=== PATIENT | male | born 1990 | race Hispanic/Latino ===

== ENCOUNTER 2024-02-15 11:28 | Emergency (ER) | payer OTHER, SELFPAY ==
[2024-02-15 11:34] VITALS: BP 176/89
[2024-02-15] MEDS: PROTONIX IV 40 MG IV (12:34)
[2024-02-15] MEDS: NSS 500 IV (12:34)
[2024-02-15] MEDS: DILAUDID 1 MG IV (12:34)
[2024-02-15] MEDS: ZOFRAN 4 MG IV ×3 (12:34→14:30)
[2024-02-15 12:40] VITALS: BMI 27.3
--- NOTE | 2024-02-15 13:11 | ED.GENMED ---
History of Present Illness
General
Chief Complaint: Abdominal Pain
Source: patient
Exam Limitations: none
Time Seen by Provider: 02/15/24 11:54
Nursing documentation reviewed up to this point in time: agreed with
Travel History
Have you had any contact with someone who has COVID-19?: No
Do you have any symptoms of coronavirus? Fever > 100 degrees, chills, cough, shortness of breath, sore throat, loss of taste or smell, muscle aches, or headache?: No
History of Present Illness
History of Present Illness:
Patient evaluated at [facility] in [place] yesterday secondary to abdominal pain with vomiting, and diagnosed with bowel obstruction via CT scan, presents to ED secondary to persistent pain with intermittent vomiting. Patient was
recommended to be admitted to the hospital, but declined. Denies fever or chills. Denies trauma. Patient medical history is significant for multiple abdominal surgeries along with bowel obstruction. Denies fever or chills. Denies diarrhea.
Denies trauma. Patient recently admitted at [facility] 1 month ago for similar complaint, and required surgery, during which time, there was minor complication with perforation which needed to be repaired surgically.
Past History
Past History
ED Past Medical History: Other (small bowel obstruction, perforated bowel, MRSA bacteremia, infectious endocarditis, multiple abdominal surgeries, intra-abdominal fistula)
ED Past Surgical History: Appendectomy, Cholecystectomy and Other (abdominal abscess drained, history of Meckel's Diverticulum Surgery, partial bowel resection)
Social History
Tobacco: Smoker
Alcohol: None
Drug: None
Personal: Single
Living: alone
Employment: Employed
Family History
Family History: Negative Diabetes, Hypertension or CAD
Review of Systems
Review of Systems
Allergies reviewed?: Yes
All Other Systems: ROS reviewed and negative except as documented in HPI and ROS
Constitutional: Reports no symptoms; Denies fever
EENT: Reports no symptoms
Respiratory: Reports no symptoms
Cardiac: Reports no symptoms
ABD/GI: Reports abdominal pain, nausea and vomiting
Musculoskeletal: Reports no symptoms
Skin: Reports no symptoms
Neurological: Reports no symptoms
Phy Exam
Physical Exam
Physical Exam:
Physical Exam
General: moderate painful distress, not acutely ill. afebrile
Head: nc/at. eomi
Neck: supple. no meningeal signs.
Heart: tachycardic, no murmur. equal radial pulses.
Lungs: no acute respiratory distress. clear bilaterally
Abdomen: normal bowel sounds. mild diffuse tenderness to palpation. multiple well healed/healing surgical scar with an approx 1cm wound dehiscence without purulent drainage.
Neuro: alert and oriented. no focal neurological deficits
Skin: no rash
Psychiatric: well kept. interactive and cooperative
Extremities: no edema. no calf tenderness.
Course
Orders/Labs/Results
Orders:
Orders
02/15/24 11:56
CR Obstruct Series W/pa Chest Urgent
Comment:
Reason For Exam: abd pain w vomiting. hx SBO
02/15/24 12:26
HYDROmorphone [Dilaudid] 1 mg IV NOW STA
02/15/24 12:27
0.9% Sodium Chloride 500 ml [Nss] 500 ml IV BOLUS
Ondansetron Injectable [Zofran] 4 mg IV NOW STA
Pantoprazole [Protonix IV] 40 mg IV NOW STA
02/15/24 13:12
HYDROmorphone [Dilaudid] 0.5 mg IV NOW STA
02/15/24 13:13
Ondansetron Injectable [Zofran] 4 mg .ROUTE .[facility]
Ondansetron Injectable [Zofran] 4 mg IV NOW STA
02/15/24 14:27
HYDROmorphone [Dilaudid] 0.5 mg IV NOW STA
Ondansetron Injectable [Zofran] 4 mg IV NOW STA
02/15/24 14:28
HYDROmorphone [Dilaudid] 0.5 mg .ROUTE .[facility]
Ondansetron Injectable [Zofran] 4 mg .ROUTE .[facility]
02/15/24 11:56
02/15/24 11:56
Vital Signs
Initial and Last Documented VS:
Initial Vital Signs
Temp Pulse Resp BP Pulse Ox
99.1 F 127 20 176/89 98
02/15/24 11:34 02/15/24 11:34 02/15/24 11:34 02/15/24 11:34 02/15/24 11:34
Last Documented Vital Signs
Temp Pulse Resp BP Pulse Ox
99.1 F 81 18 124/78 100
02/15/24 11:34 02/15/24 14:34 02/15/24 14:34 02/15/24 14:34 02/15/24 14:34
MDM/Problems Addressed
MDM/Problems Addressed:
History, exam, and previous CT abdomen pelvis along with today's x-ray consistent with likely recurrent bowel obstruction. Discussed treatment options with the patient, including potential inpatient treatment. At this time, patient feels improved
with medication and would like to be discharged home. Will return with worsening symptoms. Patient does not wish to go home with any pain medication at this time.
*Critical Care Note
Total Time (30-74mins, 75-104mins- exclusive of procedures): Not Applicable
ED Attending Note
-
Portions of this chart may have been created with voice recognition software.� Occasional wrong word or��sound alike� substitutions may have occurred due to the inherent limitations of voice recognition software.
Discharge Plan
Departure
Patient Disposition: Home (Routine Discharge)
Date of Disposition: 02/15/24
Time of Disposition: 15:30
Patient with high blood pressure during this ER visit?: Yes
Condition: Good
Discharge Problem:
Bowel obstruction
Instructions: Small Bowel Obstruction (DC)
Prescriptions:
No Action
multivitamin with folic acid [Tab-A-Irving] 1 TABLET tablet
1 tab PO DAILY
insulin glargine [Lantus U-100 Insulin] 100 unit/mL Solution
25 unit SC HS
amoxicillin-pot clavulanate 875-125 mg tablet
1 tab PO BID 10 Days Qty: 20 0RF
Referrals:
Tiffanie Guerrero MD [Family Provider] -
Activity Restrictions/Additional Instructions:
As discussed, please follow-up with your primary care physician and/or general surgeon for further evaluation and treatment. Please return to ED immediately with worsening symptoms.
Interventions
Interventions:
*Risk Screen - Suicide Last Done: 02/15/24 12:40
*General Assessment Last Done: 02/15/24 12:40
*Neglect/Abuse Screening Last Done: 02/15/24 12:40
ED- Fall Risk Assessment Last Done: 02/15/24 15:42
*ED COVID-19 Vaccine History Last Done: 02/15/24 12:40
*Nursing Disposition Last Done: 02/15/24 15:42
JM-Qfhfoz-Embddjngfv Assessment Last Done: 02/15/24 12:02
Discharge Date and Time
Discharge Date/Time: 02/15/24 15:44
Print Language: KINYARWANDA
[2024-02-15] MEDS: DILAUDID 0.5 MG IV ×2 (13:16→14:30)
[2024-02-15 14:34] VITALS: BP 124/78
== END 2024-02-15 15:44 | disposition home or self-care (01) ==
LOC: EMR 11:28
PROVIDERS: EMERGENCY PHYSICIAN Emergency Medicine; FAMILY PHYSICIAN Family Medicine
DX: K56.609 Unspecified intestinal obstruction, unspecified as to partial versus complete obstruction (principal); F17.200 Nicotine dependence, unspecified, uncomplicated; Z86.14 Personal history of Methicillin resistant Staphylococcus aureus infection; Z90.49 Acquired absence of other specified parts of digestive tract
CPT/HCPCS: 99283; 96374; 96375; 96376; 96361; 74022

== ENCOUNTER 2024-03-06 10:20 | Emergency (ER) | payer OTHER, SELFPAY ==
[2024-03-06 10:35] VITALS: BP 116/83
[2024-03-06] MEDS: ZOFRAN 4 MG IV ×2 (11:29→13:18)
[2024-03-06] MEDS: BENADRYL 50 MG IV (11:29)
[2024-03-06] MEDS: DILAUDID 0.5 MG IV ×2 (11:29→16:50)
[2024-03-06] MEDS: NSS 1000 IV (11:30)
[2024-03-06 12:13] LABS: % Basophils 0.5 % (0-2); % Eosinophils 2.4 % (0-6); % Immature Granulocytes 0.2 % (0-0.5); % Lymphocytes 26.5 % (20.5-51.1); % Monocytes 6.1 % (1.7-9.3); % Neutrophils 64.3 % (42.2-75.2); Absolute Eosinophils 0.1 10^3/uL (0-0.7); Absolute Lymphocytes 1.5 10^3/uL (1.2-3.4); Absolute Monocytes 0.4 10^3/uL (0.1-0.6); Absolute Neutrophils 3.7 10^3/uL (1.4-6.5); Hematocrit 35.8 % (39.0-52.0); Hemoglobin 12.1 g/dL (13.0-18.0); Mean Corp Hgb Conc. 33.8 g/dL (33.0-37.0); Mean Corpuscular Hgb 27.1 pg (27.0-31.0); Mean Corpuscular Volume 80.1 fL (80.0-94.0); Mean Platelet Volume 9.6 fL (7.4-10.4); Nucleated Red Blood Cells % 0 % (-); Platelet Count 424 10^3/uL (130-400); Red Blood Cell Count 4.47 10^6/uL (4.70-6.10); Red Cell Dist. Width 13.2 % (11.5-14.5); White Blood Cell Count 5.8 10^3/uL (4.8-10.8)
[2024-03-06 12:25] LABS: Lactic Acid 2.5 mmol/L (0.7-2.0)
[2024-03-06 12:28] LABS: ALT (SGPT) 30 U/L (0-50); AST (SGOT) 33 U/L (17-59); Albumin 4.5 g/dl (3.5-5.0); Alkaline Phosphatase 98 U/L (38-126); Blood Urea Nitrogen 12 mg/dl (9-20); Calcium 9.9 mg/dl (8.4-10.2); Carbon Dioxide 20 mmol/L (22-30); Chloride 107 mmol/L (98-107); Glucose 111 mg/dl (70-99); Lipase 244 U/L (23-300); Potassium 4.2 mmol/L (3.5-5.1); Sodium 137 mmol/L (135-145); Total Bilirubin 0.4 mg/dl (0.2-1.3); Total Protein 7.4 g/dl (6.3-8.2); eGFR > 60.00
[2024-03-06 12:57] VITALS: BP 123/87
[2024-03-06] MEDS: SOLU-CORTEF 200 MG IV (13:18)
[2024-03-06] MEDS: DILAUDID 1 MG IV ×2 (13:18→14:52)
[2024-03-06] MEDS: BENADRYL 25 MG IV (14:13)
[2024-03-06 15:10] VITALS: BP 138/72
--- NOTE | 2024-03-06 16:18 | ED.GENMED ---
History of Present Illness
General
Chief Complaint: Bowel Problem
Source: patient
Exam Limitations: none
Time Seen by Provider: 03/06/24 11:12
Nursing documentation reviewed up to this point in time: agreed with
Travel History
Have you had any contact with someone who has COVID-19?: No
Do you have any symptoms of coronavirus? Fever > 100 degrees, chills, cough, shortness of breath, sore throat, loss of taste or smell, muscle aches, or headache?: No
History of Present Illness
History of Present Illness:
33-year-old male with past medical history of extensive bowel surgeries bowel obstructions presenting to the emergency department today with concerns of ongoing abdominal pain nausea and vomiting. Was recently at [facility] where they were treating
him for bowel obstruction with an NG tube he had to leave and go to court date. He had ongoing symptoms at court and came to the ER here for assessment. He had ongoing abdominal pain and also ongoing intermittent vomiting specifically worse when
try to consume by mouth. Denies specific chest pain fevers. Denies significant bowel movements over the past few days.
Past History
Past History
ED Past Medical History: Other (small bowel obstruction, perforated bowel, MRSA bacteremia, infectious endocarditis, multiple abdominal surgeries, intra-abdominal fistula)
ED Past Surgical History: Appendectomy, Cholecystectomy and Other (abdominal abscess drained, history of Meckel's Diverticulum Surgery, partial bowel resection)
Social History
Tobacco: Smoker
Alcohol: None
Drug: None
Personal: Single
Living: alone
Employment: Employed
Family History
Family History: Negative Diabetes, Hypertension or CAD
Review of Systems
Review of Systems
Allergies reviewed?: Yes
All Other Systems: ROS reviewed and negative except as documented in HPI and ROS
Phy Exam
Physical Exam
Physical Exam:
GENERAL: Alert , in no apparent distress
EYE: pupils equal and reactive
NECK: Supple, no significant adenopathy.
ENT: o/p clr, mmm.
CARDIAC: Regular rate and rhythm .
LUNGS: Clear breath sounds bilaterally, no acute respiratory distress, no wheezes/rales/rhonchi
ABDOMEN: Diffuse tenderness to the abdomen midline incision without dehiscence, multiple scars throughout the abdomen
NEUROLOGICAL: Alert and oriented, no focal neuro deficits
SKIN: Warm and dry, skin intact.
MUSCULOSKELETAL: No edema, well perfused.
PSYCH: Normal and appropriate interaction.
Course
Orders/Labs/Results
Orders:
Orders
03/06/24 11:19
CT Abd/Pel (IV only)-DH only Urgent
Comment:
Reason For Exam: abd pain, hx od obstruction, cant tolerate oral
Urinalysis Reflex To Culture Urgent
Date Specimen was Collected: 03/06/24
Time Specimen was Collected: 11:22
0.9% Sodium Chloride 1000 ml [Nss] 1,000 ml IV BOLUS
Diphenhydramine [Benadryl] 50 mg IV NOW STA
HYDROmorphone [Dilaudid] 0.5 mg IV NOW STA
Ondansetron Injectable [Zofran] 4 mg IV NOW STA
03/06/24 11:28
Complete Blood Count/With Diff Urgent
Comprehensive Metabolic Panel Urgent
Lactic Acid Urgent
Lipase Urgent
03/06/24 12:26
Hydrocortisone Sod Succinate [Solu-Cortef] 200 mg IV NOW STA
03/06/24 13:14
HYDROmorphone [Dilaudid] 1 mg IV NOW STA
Ondansetron Injectable [Zofran] 4 mg IV NOW STA
03/06/24 14:12
Diphenhydramine [Benadryl] 50 mg .ROUTE .[facility]
03/06/24 14:13
Diphenhydramine [Benadryl] 25 mg IV NOW STA
03/06/24 14:49
HYDROmorphone [Dilaudid] 1 mg IV NOW STA
Abnormal Lab Results
03/06/24
11:28
RBC 4.47 L 10^6/uL
(4.70-6.10)
Hgb 12.1 L g/dL
(13.0-18.0)
Hct 35.8 L %
(39.0-52.0)
Plt Count 424 H 10^3/uL
(130-400)
Carbon Dioxide 20 L mmol/L
(22-30)
Glucose 111 H mg/dl
(70-99)
Lactic Acid 2.5 H mmol/L
(0.7-2.0)
03/06/24 11:28
03/06/24 11:28
Vital Signs
Initial and Last Documented VS:
Initial Vital Signs
Temp Pulse Resp BP Pulse Ox
98.9 F 117 18 116/83 100
03/06/24 10:35 03/06/24 10:35 03/06/24 10:35 03/06/24 10:35 03/06/24 10:35
Last Documented Vital Signs
Temp Pulse Resp BP Pulse Ox
98.9 F 107 18 138/72 99
03/06/24 10:35 03/06/24 15:10 03/06/24 15:10 03/06/24 15:10 03/06/24 15:10
MDM/Problems Addressed
MDM/Problems Addressed:
33-year-old male with past medical history of multiple abdominal surgeries in the past coming in for abdominal pain. Recently had surgery at [place] 2 months ago was very recently at [facility] where he was being treated by general surgery for
bowel obstruction open to 5 days ago ongoing symptoms today. On arrival here initially tachycardic mild elevation of his lactic acid to 2.5 was given a liter of fluid does feel better after receiving pain medication and nausea medication. Heart
rate improving to the high 90s and low 100s. CT scan performed did not show any processes but did show slow gut transit. He additionally when lying flat for the CT scan had a small superficial dehiscence of his wound which was discussed with
surgery that felt that this did not require any emergent procedure. Patient does not appear to need any emergent surgery at this time and was requesting to leave he would like to go to [facility] at this time. It was offered to him to be admitted
due to his significant ongoing symptoms for monitoring here. He declined this he preferred to go to [facility]. He was encouraged to return for any concerning features moving forward.
*Critical Care Note
Total Time (30-74mins, 75-104mins- exclusive of procedures): Not Applicable
ED Attending Note
-
Portions of this chart may have been created with voice recognition software.� Occasional wrong word or��sound alike� substitutions may have occurred due to the inherent limitations of voice recognition software.
Discharge Plan
Departure
Patient Disposition: Home (Routine Discharge)
Date of Disposition: 03/06/24
Time of Disposition: 16:39
Patient with high blood pressure during this ER visit?: No
Condition: Good
Covid-19: Not Applicable
Discharge Problem:
Vomiting, Abdominal pain
Instructions: Nausea and Vomiting, Adult (DC), Abdominal Pain
Prescriptions:
No Action
multivitamin with folic acid [Tab-A-Irving] 1 TABLET tablet
1 tab PO DAILY
insulin glargine [Lantus U-100 Insulin] 100 unit/mL Solution
25 unit SC HS
amoxicillin-pot clavulanate 875-125 mg tablet
1 tab PO BID 10 Days Qty: 20 0RF
Referrals:
Tiffanie Guerrero MD [Family Provider] -
Activity Restrictions/Additional Instructions:
You can to the emergency department today with concerns of ongoing abdominal discomfort. Here he had a slightly elevated lactic acid but otherwise labs are unremarkable. Your CT scan did not show any emergent surgical process. Your abdomen did
have a small dehiscence. You will need to follow-up very closely with surgery and should seek immediate general surgery care. Immediately return for any progressive symptoms.
Interventions
Interventions:
*Risk Screen - Suicide Last Done: 03/06/24 11:01
*General Assessment Last Done: 03/06/24 11:01
*Neglect/Abuse Screening Last Done: 03/06/24 11:01
ED- Fall Risk Assessment Last Done: 03/06/24 11:01
*ED COVID-19 Vaccine History Last Done: 03/06/24 11:01
NI-Bctadu-Cqpmbuhdnc Assessment Last Done: 03/06/24 11:01
Discharge Date and Time
Print Language: FRISIAN
== END 2024-03-06 17:23 | disposition home or self-care (01) ==
LOC: EMR 10:20
PROVIDERS: Physician Assistant; EMERGENCY PHYSICIAN Emergency Medicine; FAMILY PHYSICIAN Family Medicine
DX: R10.9 Unspecified abdominal pain (principal); R11.2 Nausea with vomiting, unspecified
CPT/HCPCS: 99285; 96374; 96375 ×3; 96361; 96376 ×3; 74177; 80053; 83605; 83690; 85025; Q9967

== ENCOUNTER 2024-04-03 06:58 | Emergency (ER) | payer OTHER, SELFPAY ==
[2024-04-03 07:00] VITALS: BP 144/98
--- NOTE | 2024-04-03 07:05 | ED.GENMED ---
History of Present Illness
General
Chief Complaint: Abdominal Pain
Time Seen by Provider: 04/03/24 07:05
Travel History
Have you had any contact with someone who has COVID-19?: No
Do you have any symptoms of coronavirus? Fever > 100 degrees, chills, cough, shortness of breath, sore throat, loss of taste or smell, muscle aches, or headache?: No
History of Present Illness
History of Present Illness:
HPI: Patient has had multiple abdominal surgeries/bowel obstruction. He has increasing pain and vomiting.
2007 at [facility] appendicitis that had cholecystectomy
Had surgery at [facility]
Had a wound VAC with perforation at [place]
Most recently had surgery at [place] and he refuses to go back to [place]
Has upcoming surgery at [facility] as he states that he had abnormal CT imaging regarding the anastomosis and has upcoming surgery in a few weeks
EXAM:
GENERAL: Well appearing in no distress
HEENT: Moist oral mucosa
CARDIOVASCULAR: No murmurs, normal heart rate, regular rhythm, No chest wall tenderness
PULMONARY: No respiratory distress, breath sounds are clear and equal
ABDOMEN: Soft with no peritoneal signs, moderate diffuse abdominal tenderness, there is some distention noted more to the left side
NEUROLOGIC: Excellent strength all extremities, no coordination deficits
PSYCHIATRIC: Appropriate mental status, normal insight and judgement
EXTREMITIES: Nontender, no edema, moves all extremities equally
SKIN: No rash, no lesions
TIME OF INITIAL ENCOUNTER: 7:15 AM
NUMBER AND COMPLEXITY OF PROBLEMS ADDRESSED AT THE ENCOUNTER
� Chronic conditions affecting care: Has had bowel obstruction, Meckel's diverticulum, had bowel perforation
� Acute Exacerbation and/or Progression of Chronic Illness: This is an acute but recurring problem
� Differential Diagnosis includes: Bowel obstruction, surgical complication
AMOUNT AND/OR COMPLEXITY OF DATA TO BE REVIEWED AND ANALYZED
� I performed an independent evaluation of and my interpretation is:
EKG:
CT: CT imaging personally viewed and I see no evidence of obstruction
X-rays:
Laboratory Studies: White count 5.5, hemoglobin 10.1, chemistries unremarkable exception of glucose of 222
Other:
� Review of other/old records: CT of the abdomen pelvis 1 month ago showed no evidence for bowel obstruction however slow transit was suggested
� Clinical information was obtained by an independent historian: None needed
� Prescriptions/Medications Considered but not given:
� Further testing considered but not performed:
RISK OF COMPLICATIONS AND/OR MORBIDITY OR MORTALITY OF PATIENT MANAGEMENT
� Social determinants of health affecting care: Lives at home
� Discussion with other providers:
� Escalation of care including admission/observation vs risk of discharge considered: As patient does have a complex surgical history and did appear to be in pain we did give 2 rounds of narcotic analgesia. Will send
prescription to his pharmacy for Zofran. No evidence of obstruction. To follow-up with his surgeons.
Past History
Past History
ED Past Medical History: Other (small bowel obstruction, perforated bowel, MRSA bacteremia, infectious endocarditis, multiple abdominal surgeries, intra-abdominal fistula)
ED Past Surgical History: Appendectomy, Cholecystectomy and Other (abdominal abscess drained, history of Meckel's Diverticulum Surgery, partial bowel resection)
Social History
Tobacco: Smoker
Alcohol: None
Drug: None
Personal: Single
Living: alone
Employment: Employed
Family History
Family History: Negative Diabetes, Hypertension or CAD
Phy Exam
Physical Exam
Physical Exam:
See HPI
Course
Orders/Labs/Results
Orders:
Orders
04/03/24 07:20
0.9% Sodium Chloride 1000 ml [Nss] 1,000 ml IV BOLUS
Diphenhydramine [Benadryl] 50 mg IV NOW STA
HYDROmorphone [Dilaudid] 1 mg IV NOW STA
Iohexol [Omnipaque] See Protocol PO NOW STA
MethylPREDNISolone PF [Solu-Medrol Pf] 125 mg IV NOW STA
Ondansetron Injectable [Zofran] 4 mg IV NOW STA
CR Chest Single View Urgent
Comment:
Reason For Exam: eval PICC placement
04/03/24 07:21
CT Abd/pel W Iv And Oral Contr Urgent
Comment:
Reason For Exam: mult prior surgeries
04/03/24 07:57
Complete Blood Count/With Diff Urgent
Comprehensive Metabolic Panel Urgent
Lipase Urgent
04/03/24 10:09
HYDROmorphone [Dilaudid] 1 mg IV NOW STA
Abnormal Lab Results
04/03/24
07:57
RBC 3.90 L 10^6/uL
(4.70-6.10)
Hgb 10.1 L g/dL
(13.0-18.0)
Hct 30.4 L %
(39.0-52.0)
MCV 77.9 L fL
(80.0-94.0)
MCH 25.9 L pg
(27.0-31.0)
RDW 14.6 H %
(11.5-14.5)
Eosinophils % 10.3 H %
(0-6)
Creatinine 0.6 L mg/dL
(0.7-1.3)
Glucose 222 H mg/dl
(70-99)
04/03/24 07:57
04/03/24 07:57
Vital Signs
Initial and Last Documented VS:
Initial Vital Signs
Temp Pulse Resp BP Pulse Ox
98.7 F 118 18 144/98 100
04/03/24 07:00 04/03/24 07:00 04/03/24 07:00 04/03/24 07:00 04/03/24 07:00
Last Documented Vital Signs
Temp Pulse Resp BP Pulse Ox
98.7 F 85 21 122/83 98
04/03/24 07:00 04/03/24 11:09 04/03/24 10:05 04/03/24 11:09 04/03/24 11:09
*Critical Care Note
Total Time (30-74mins, 75-104mins- exclusive of procedures): Not Applicable
ED Attending Note
-
Portions of this chart may have been created with voice recognition software.� Occasional wrong word or��sound alike� substitutions may have occurred due to the inherent limitations of voice recognition software.
Discharge Plan
Departure
Prescriptions:
No Action
multivitamin with folic acid [Tab-A-Irving] 1 TABLET tablet
1 tab PO DAILY
insulin glargine [Lantus U-100 Insulin] 100 unit/mL Solution
25 unit SC HS
amoxicillin-pot clavulanate 875-125 mg tablet
1 tab PO BID 10 Days Qty: 20 0RF
Referrals:
Aldo Cheng MD [Family Provider] -
Interventions
Interventions:
*Risk Screen - Suicide Last Done: 04/03/24 07:00
*General Assessment Last Done: 04/03/24 07:00
*Neglect/Abuse Screening Last Done: 04/03/24 07:00
*ED COVID-19 Vaccine History Last Done: 04/03/24 07:00
ZC-Gpaoxx-Kwlyurvxxj Assessment Last Done: 04/03/24 07:25
Discharge Date and Time
Print Language: TAJIK
[2024-04-03] MEDS: BENADRYL 50 MG IV (08:10)
[2024-04-03] MEDS: DILAUDID 1 MG IV ×2 (08:10→10:17)
[2024-04-03 08:11] LABS: % Basophils 0.4 % (0-2); % Eosinophils 10.3 % (0-6); % Immature Granulocytes 0.4 % (0-0.5); % Lymphocytes 25.6 % (20.5-51.1); % Monocytes 8.2 % (1.7-9.3); % Neutrophils 55.1 % (42.2-75.2); Absolute Eosinophils 0.6 10^3/uL (0-0.7); Absolute Lymphocytes 1.4 10^3/uL (1.2-3.4); Absolute Monocytes 0.5 10^3/uL (0.1-0.6); Hematocrit 30.4 % (39.0-52.0); Hemoglobin 10.1 g/dL (13.0-18.0); Mean Corp Hgb Conc. 33.2 g/dL (33.0-37.0); Mean Corpuscular Hgb 25.9 pg (27.0-31.0); Mean Corpuscular Volume 77.9 fL (80.0-94.0); Nucleated Red Blood Cells % 0 % (-); Platelet Count 339 10^3/uL (130-400); Red Cell Dist. Width 14.6 % (11.5-14.5); White Blood Cell Count 5.5 10^3/uL (4.8-10.8)
[2024-04-03] MEDS: NSS 1000 IV (08:11)
[2024-04-03] MEDS: SOLU-MEDROL PF 125 MG IV (08:11)
[2024-04-03] MEDS: ZOFRAN 4 MG IV (08:11)
[2024-04-03] MEDS: OMNIPAQUE 50 ML PO (08:11)
[2024-04-03 08:28] LABS: ALT (SGPT) 18 U/L (0-50); Albumin 3.5 g/dl (3.5-5.0); Alkaline Phosphatase 84 U/L (38-126); Blood Urea Nitrogen 9 mg/dl (9-20); Carbon Dioxide 24 mmol/L (22-30); Chloride 105 mmol/L (98-107); Glucose 222 mg/dl (70-99); Lipase 133 U/L (23-300); Sodium 138 mmol/L (135-145); Total Bilirubin 0.2 mg/dl (0.2-1.3); Total Protein 6.3 g/dl (6.3-8.2); eGFR > 60.00
[2024-04-03 08:41] LABS: AST (SGOT) 18 U/L (17-59)
[2024-04-03 10:05] VITALS: BP 114/88
[2024-04-03 11:09] VITALS: BP 122/83
[2024-04-03 12:04] VITALS: BP 127/84
== END 2024-04-03 12:13 | disposition home or self-care (01) ==
LOC: EMR 06:58
PROVIDERS: EMERGENCY PHYSICIAN Emergency Medicine; FAMILY PHYSICIAN Internal Medicine
DX: R10.9 Unspecified abdominal pain (principal); R11.10 Vomiting, unspecified; R14.0 Abdominal distension (gaseous); Q43.0 Meckel's diverticulum (displaced) (hypertrophic); Z90.49 Acquired absence of other specified parts of digestive tract; Z88.2 Allergy status to sulfonamides; Z88.8 Allergy status to other drugs, medicaments and biological substances; Z91.041 Radiographic dye allergy status
CPT/HCPCS: 99285; 96375 ×3; 96361 ×2; 96374; 96376; 71045; 74177; 80053; 83690; 85025; Q9967

== ENCOUNTER 2024-05-31 15:20 | Emergency (ER) | payer OTHER, SELFPAY ==
[2024-05-31 15:28] VITALS: BP 133/94
--- NOTE | 2024-05-31 15:48 | ED.GENMED ---
History of Present Illness
<Lynsey Vieyra PA-C - Last Filed: 06/01/24 23:56>
General
Chief Complaint: Abdominal Symptoms
Source: patient
Exam Limitations: none
Time Seen by Provider: 05/31/24 15:32
Nursing documentation reviewed up to this point in time: agreed with
History of Present Illness
History of Present Illness:
Patient is a 34 year old male with history multiple abdominal surgeries status post bowel obstructions and perforations presenting to the emergency department with worsening abdominal pain and vomiting. Patient states symptoms initially worsened
yesterday and he endorses significant abdominal pain, distention, and vomiting. Patient thought that his abdomen felt extremely firm today and came to the emergency department for further evaluation. Patient denies any fever, chills. Patient
states that he has not had a bowel movement in 5 days. Denies any hematemesis, hematochezia. Patient denies any urinary symptoms.
Patient did have a bowel perforation in 01/18. He has had imaging done which showed that his anastomosis is essentially blocked and he is scheduled for repeat surgery at [facility] in June.
Past History
<Lynsey Vieyra PA-C - Last Filed: 06/01/24 23:56>
Past History
ED Past Medical History: Other (small bowel obstruction, perforated bowel, MRSA bacteremia, infectious endocarditis, multiple abdominal surgeries, intra-abdominal fistula)
ED Past Surgical History: Appendectomy, Cholecystectomy and Other (abdominal abscess drained, history of Meckel's Diverticulum Surgery, partial bowel resection)
Social History
Tobacco: Smoker
Alcohol: None
Drug: None
Personal: Single
Living: alone
Employment: Employed
Family History
Family History: Negative Diabetes, Hypertension or CAD
Review of Systems
<Lynsey Vieyra PA-C - Last Filed: 06/01/24 23:56>
Review of Systems
Allergies reviewed?: Yes
All Other Systems: ROS reviewed and negative except as documented in HPI and ROS
Phy Exam
<Lynsey Vieyra PA-C - Last Filed: 06/01/24 23:56>
Physical Exam
Physical Exam:
Vitals: Mildly hypertensive and tachycardic, otherwise vital signs stable.
General: Patient is moderately uncomfortable due to pain
Skin: Warm and dry, no rashes or lesions
Head: Normocephalic, atraumatic
Eyes: Sclera nonicteric. EOMs intact. No nystagmus.
Throat: Protecting airway
Neck: Normal ROM, no cervical spine tenderness, no meningismus
Cardiac: Regular rate and rhythm, no murmurs.
Pulm: Normal respiratory effort, no wheezes, rales, rhonchi heard on exam.
Abdomen: Moderately distended and somewhat firm, significant tenderness diffusely throughout abdomen. Midline vertical well-healing incision without any dehiscence
Extremities: No evidence of cyanosis or edema. Great distal pulses
Neuro: AAOx3. CN II-XII intact. No focal neurologic deficits.
Psychiatric: Normal affect.
Course
<Lynsey Vieyra PA-C - Last Filed: 06/01/24 23:56>
Orders/Labs/Results
Orders:
Orders
05/31/24 16:00
Diphenhydramine [Benadryl] 50 mg IV NOW STA
HYDROmorphone [Dilaudid] 1 mg IV NOW STA
Iohexol [Omnipaque] See Protocol PO NOW STA
MethylPREDNISolone PF [Solu-Medrol Pf] 125 mg IV NOW STA
Ondansetron Injectable [Zofran] 4 mg IV NOW STA
05/31/24 16:02
CT Abd/pel (oral only)-[facility] Only Urgent
Comment: multiple prior surgeries
Reason For Exam: Abdominal pain
05/31/24 16:05
CR Obstruct Series W/pa Chest Urgent
Comment:
Reason For Exam: abdominal pain
05/31/24 16:27
Complete Blood Count/With Diff Urgent
Comprehensive Metabolic Panel Urgent
Lactic Acid Q4H
Comment: CANCEL 2nd LACTIC ACID IF 1st LACTIC ACID IS LESS THAN 2
Lipase Urgent
05/31/24 16:38
Hydrocortisone Sod Succinate [Solu-Cortef] 200 mg IV NOW STA
05/31/24 18:10
HYDROmorphone [Dilaudid] 0.5 mg IV NOW STA
05/31/24 21:48
HYDROmorphone [Dilaudid] 0.5 mg IV NOW STA
05/31/24 22:09
Diphenhydramine [Benadryl] 50 mg .ROUTE .STK-MED ONE
05/31/24 22:10
Diphenhydramine [Benadryl] 25 mg IV NOW STA
Diphenhydramine [Benadryl] 25 mg IV NOW STA
Abnormal Lab Results
05/31/24
16:27
RBC 4.43 L 10^6/uL
(4.70-6.10)
Hgb 10.5 L g/dL
(13.0-18.0)
Hct 32.0 L %
(39.0-52.0)
MCV 72.2 L fL
(80.0-94.0)
MCH 23.7 L pg
(27.0-31.0)
MCHC 32.8 L g/dL
(33.0-37.0)
RDW 16.2 H %
(11.5-14.5)
Absolute Monos (auto) 0.8 H 10^3/uL
(0.1-0.6)
Monocytes % 11.8 H %
(1.7-9.3)
Chloride 109 H mmol/L
(98-107)
Glucose 107 H mg/dl
(70-99)
05/31/24 16:27
05/31/24 16:27
Vital Signs
Initial and Last Documented VS:
Initial Vital Signs
Pulse Resp Pulse Ox
110 16 99
05/31/24 15:24 05/31/24 15:24 05/31/24 15:24
Last Documented Vital Signs
Temp Pulse Resp BP Pulse Ox
98.1 F 92 18 109/76 100
05/31/24 19:09 06/01/24 02:00 06/01/24 02:00 05/31/24 23:35 06/01/24 02:00
<Garfield Haddad, DO - Last Filed: 06/01/24 20:05>
Orders/Labs/Results
Orders:
Orders
05/31/24 16:00
Diphenhydramine [Benadryl] 50 mg IV NOW STA
HYDROmorphone [Dilaudid] 1 mg IV NOW STA
Iohexol [Omnipaque] See Protocol PO NOW STA
MethylPREDNISolone PF [Solu-Medrol Pf] 125 mg IV NOW STA
Ondansetron Injectable [Zofran] 4 mg IV NOW STA
05/31/24 16:02
CT Abd/pel (oral only)-[facility] Only Urgent
Comment: multiple prior surgeries
Reason For Exam: Abdominal pain
05/31/24 16:05
CR Obstruct Series W/pa Chest Urgent
Comment:
Reason For Exam: abdominal pain
05/31/24 16:27
Complete Blood Count/With Diff Urgent
Comprehensive Metabolic Panel Urgent
Lactic Acid Q4H
Comment: CANCEL 2nd LACTIC ACID IF 1st LACTIC ACID IS LESS THAN 2
Lipase Urgent
05/31/24 16:38
Hydrocortisone Sod Succinate [Solu-Cortef] 200 mg IV NOW STA
05/31/24 18:10
HYDROmorphone [Dilaudid] 0.5 mg IV NOW STA
05/31/24 21:48
HYDROmorphone [Dilaudid] 0.5 mg IV NOW STA
05/31/24 22:09
Diphenhydramine [Benadryl] 50 mg .ROUTE .STK-MED ONE
05/31/24 22:10
Diphenhydramine [Benadryl] 25 mg IV NOW STA
Diphenhydramine [Benadryl] 25 mg IV NOW STA
Abnormal Lab Results
05/31/24
16:27
RBC 4.43 L 10^6/uL
(4.70-6.10)
Hgb 10.5 L g/dL
(13.0-18.0)
Hct 32.0 L %
(39.0-52.0)
MCV 72.2 L fL
(80.0-94.0)
MCH 23.7 L pg
(27.0-31.0)
MCHC 32.8 L g/dL
(33.0-37.0)
RDW 16.2 H %
(11.5-14.5)
Absolute Monos (auto) 0.8 H 10^3/uL
(0.1-0.6)
Monocytes % 11.8 H %
(1.7-9.3)
Chloride 109 H mmol/L
(98-107)
Glucose 107 H mg/dl
(70-99)
05/31/24 16:27
05/31/24 16:27
Vital Signs
Initial and Last Documented VS:
Initial Vital Signs
Pulse Resp Pulse Ox
110 16 99
05/31/24 15:24 05/31/24 15:24 05/31/24 15:24
Last Documented Vital Signs
Temp Pulse Resp BP Pulse Ox
98.1 F 92 18 109/76 100
05/31/24 19:09 06/01/24 02:00 06/01/24 02:00 05/31/24 23:35 06/01/24 02:00
<Lynsey Vieyra PA-C - Last Filed: 06/01/24 23:56>
MDM/Problems Addressed
Differential Diagnosis Includes:
Not limited to: Bowel obstruction, bowel perforation, ischemic bowel, strangulated hernia,
MDM/Problems Addressed:
34-year-old male with complex abdominal surgical history including history of bowel perforation and bowel obstruction presenting with worsening abdominal pain since yesterday with associated vomiting. Patient is scheduled for surgery with his GI
doctor at [facility] in early June for repair of his anastomosis. Vital signs are stable on arrival. Patient is afebrile. Physical exam as above. Patient is writhing in pain appears very uncomfortable. Abdomen is moderately
distended with significant tenderness diffusely throughout abdomen. He does have well-healing scars on his abdomen without any evidence of wound dehiscence. Heart regular rate rhythm. Lungs clear bilaterally. Patient is perfusing well. No focal
neurologic deficits. Will check basic labs, lactic, lipase. Will proceed with obstruction series x-ray to evaluate for obstruction/free air. Will plan for CT abdomen/pelvis. Contrast allergy noted�will pretreat patient Solu-Medrol/Benadryl.
Patient was given IV fluids, Zofran, Dilaudid.
Labs noted. Mild anemia with hemoglobin 10.5, which appears chronic and stable. There is no leukocytosis. Chemistry panel is without any clinically significant abnormalities. There is no lactic acidosis. Initial read of instructions x-ray
myself attending showed no evidence of obstruction or free air. Patient is more comfortable following Dilaudid. Will continue to monitor patient pending CT scan.
CT scan was performed without IV contrast given patient's IVs infiltrated multiple times. Report was reviewed which shows no acute abnormalities. No evidence of obstruction or perforation. Do not suspect acute infectious process no leukocytosis
and patient is afebrile. I suspect symptoms are likely related to surgical changes. He has not had any episodes of vomiting while in the emergency department. Although do not suspect acute process given patient required multiple rounds of
narcotic pain medication admission was offered to patient for further management/pain control. Patient states he is feeling better and does have a follow-up scheduled with the surgeon on Saturday, in 2 days. He feels comfortable with discharge at
this time. Patient's labs are stable, vital signs remained stable and patient has been tolerating p.o. intake without any episodes of vomiting. Patient stable for discharge with close return precautions. He will follow-up with surgeon on Saturday.
Case discussed with attending physician.
Chronic conditions affecting care:
History of bowel obstruction, bowel perforation
Acute Exacerbation and/or Progression of Chronic Illness:
N/A
<Lynsey Vieyra PA-C - Last Filed: 06/01/24 23:56>
*Radiology
Radiology exam reviewed: preliminary read by ED provider and radiology read reviewed
*Pulse Oximetry
Patient hypoxic: no
*EKG
Interpreted by ED Provider?: NA
*Print Line Tailer Interpretation
Rate: Print Line Tailer- N/A
*Critical Care Note
Total Time (30-74mins, 75-104mins- exclusive of procedures): Not Applicable
ED Attending Note
<Lynsey Vieyra PA-C - Last Filed: 06/01/24 23:56>
-
Portions of this chart may have been created with voice recognition software.� Occasional wrong word or��sound alike� substitutions may have occurred due to the inherent limitations of voice recognition software.
<Garfield Haddad, - Last Filed: 06/01/24 20:05>
ED Attending Note
Patient seen and examined by attending physician: Yes
I performed a history and physical exam of patient and discussed management with resident, I reviewed resident's note and agree with documented findings and plan of care.: Yes
ED Attending Note:
I reviewed and agree with history plan by telederm. Exam reveals 34-year-old male no acute distress. CT abdomen pelvis does not show any acute findings. Stable for discharge and GI follow-up.
Discharge Plan
Departure
Patient Disposition: Home (Routine Discharge)
Date of Disposition: 05/31/24
Time of Disposition: 23:28
Patient with high blood pressure during this ER visit?: No
Condition: Good
Covid-19: Not Applicable
Discharge Problem:
Abdominal pain
Instructions: Clear Liquid Diet, Abdominal Pain
Prescriptions:
No Action
multivitamin with folic acid [Tab-A-Irving] 1 TABLET tablet
1 tab PO DAILY
insulin glargine [Lantus U-100 Insulin] 100 unit/mL Solution
25 unit SC HS
amoxicillin-pot clavulanate 875-125 mg tablet
1 tab PO BID 10 Days Qty: 20 0RF
ondansetron HCl 4 mg tablet
4 mg PO DAILY PRN (Reason: nausea and vomiting) Qty: 14 0RF
Referrals:
Aldo Cheng MD [Family Provider] -
Activity Restrictions/Additional Instructions:
RETURN TO THE EMERGENCY DEPARTMENT WITH ANY FEVERS, CHILLS, SEVERE/PERSISTENT ABDOMINAL PAIN, INTRACTABLE NAUSEA/VOMITING, ANY WORSENING IN CURRENT SYMPTOMS, CHEST PAIN, SHORTNESS OF BREATH, OR ANY OTHER CONCERNS
-As discussed�you should hear to a clear liquid diet over the next few days until you are followed up by your GI doctor/surgeon. It is very important you keep your upcoming appointment for this Saturday.
-Is important to stay well-hydrated.
Monitor your symptoms closely return to the emergency department any acute worsening/new symptoms
Interventions
Interventions:
*Risk Screen - Suicide Last Done: 05/31/24 15:20
*General Assessment Last Done: 05/31/24 15:20
*Neglect/Abuse Screening Last Done: 05/31/24 15:20
ED- Fall Risk Assessment Last Done: 05/31/24 15:20
*ED COVID-19 Vaccine History Last Done: 05/31/24 15:20
*Nursing Disposition Last Done: 06/01/24 02:00
XL-Vyfatg-Mxezpxnmce Assessment Last Done: 05/31/24 15:20
Discharge Date and Time
Discharge Date/Time: 06/01/24 02:01
Print Language: GIBRALTARIAN
[2024-05-31] MEDS: DILAUDID 1 MG IV (16:45)
[2024-05-31] MEDS: ZOFRAN 4 MG IV (16:47)
[2024-05-31 18:02] LABS: % Basophils 0.6 % (0-2); % Eosinophils 4.9 % (0-6); % Immature Granulocytes 0.2 % (0-0.5); % Lymphocytes 32.8 % (20.5-51.1); % Monocytes 11.8 % (1.7-9.3); % Neutrophils 49.7 % (42.2-75.2); Absolute Eosinophils 0.3 10^3/uL (0-0.7); Absolute Lymphocytes 2.1 10^3/uL (1.2-3.4); Absolute Monocytes 0.8 10^3/uL (0.1-0.6); Absolute Neutrophils 3.3 10^3/uL (1.4-6.5); Hemoglobin 10.5 g/dL (13.0-18.0); Mean Corp Hgb Conc. 32.8 g/dL (33.0-37.0); Mean Corpuscular Hgb 23.7 pg (27.0-31.0); Mean Corpuscular Volume 72.2 fL (80.0-94.0); Mean Platelet Volume 9.1 fL (7.4-10.4); Nucleated Red Blood Cells % 0 % (-); Platelet Count 359 10^3/uL (130-400); Red Blood Cell Count 4.43 10^6/uL (4.70-6.10); Red Cell Dist. Width 16.2 % (11.5-14.5); White Blood Cell Count 6.5 10^3/uL (4.8-10.8)
[2024-05-31 18:18] LABS: Lactic Acid 1.5 mmol/L (0.7-2.0)
[2024-05-31 18:19] LABS: ALT (SGPT) 24 U/L (0-50); AST (SGOT) 27 U/L (17-59); Albumin 4.3 g/dl (3.5-5.0); Alkaline Phosphatase 75 U/L (38-126); Blood Urea Nitrogen 12 mg/dl (9-20); Calcium 9.3 mg/dl (8.4-10.2); Carbon Dioxide 22 mmol/L (22-30); Chloride 109 mmol/L (98-107); Glucose 107 mg/dl (70-99); Lipase 138 U/L (23-300); Potassium 4.3 mmol/L (3.5-5.1); Sodium 140 mmol/L (135-145); Total Bilirubin 0.2 mg/dl (0.2-1.3); Total Protein 6.9 g/dl (6.3-8.2); eGFR > 60.00
[2024-05-31] MEDS: DILAUDID 0.5 MG IV ×2 (18:25→22:08)
[2024-05-31] MEDS: SOLU-CORTEF 200 MG IV (18:26)
[2024-05-31] MEDS: BENADRYL 50 MG IV (18:26)
[2024-05-31] MEDS: OMNIPAQUE 50 ML PO (18:27)
[2024-05-31 19:09] VITALS: BP 113/76; BMI 26.0
[2024-05-31] MEDS: BENADRYL 25 MG IV (22:10)
[2024-05-31 23:35] VITALS: BP 109/76
== END 2024-06-01 02:01 | disposition home or self-care (01) ==
LOC: EMR 15:20
PROVIDERS: Physician Assistant; EMERGENCY PHYSICIAN Emergency Medicine; FAMILY PHYSICIAN Internal Medicine
DX: R10.9 Unspecified abdominal pain (principal); F17.200 Nicotine dependence, unspecified, uncomplicated
CPT/HCPCS: 99285; 96374; 96375 ×3; 96376 ×2; 74022; 74176; 80053; 83605; 83690; 85025

== ENCOUNTER 2024-07-03 17:49 | Inpatient (IN) | payer OTHER, SELFPAY ==
[2024-07-03] VITALS (7 sets, daily range): BP systolic 125–159; BP diastolic 83–102; BMI 27.2
--- NOTE | 2024-07-03 11:08 | ED.GENMED ---
History of Present Illness
<Osvaldo Chamorro DO - Last Filed: 07/03/24 11:12>
General
Chief Complaint: Abdominal Pain
Time Seen by Provider: 07/03/24 10:57
<Alesha Vigil PA-C - Last Filed: 07/03/24 18:28>
General
Source: patient and records
History of Present Illness
History of Present Illness:
34yoM with an extensive surgical history with multiple previous abdominal surgeries presenting for evaluation of abdominal pain. Patient reports having 12 abdominal surgeries in the past and he also has a history of two prior bowel perforations. He
had a bowel perforation 6 months ago and had surgery at [facility] with anastomosis creation. He was told that the anastomosis had a narrowing in it and he has a surgery scheduled at [facility] on 07/09/24 to repair this. He started to have abdominal
pain yesterday but it was manageable. He woke up this morning around 4:30am with a fever of 103. He reports worsening LUQ pain and has had several episodes of vomiting today. He thinks he has another bowel perforation. Last BM was 4 days ago and he
denies passing flatus.
Past History
<Alesha Vigil PA-C - Last Filed: 07/03/24 18:28>
Past History
ED Past Medical History: Other (small bowel obstruction, perforated bowel, MRSA bacteremia, infectious endocarditis, multiple abdominal surgeries, intra-abdominal fistula)
ED Past Surgical History: Appendectomy, Cholecystectomy and Other (abdominal abscess drained, history of Meckel's Diverticulum Surgery, partial bowel resection)
Social History
Tobacco: Smoker
Alcohol: None
Drug: None
Personal: Single
Living: alone
Employment: Employed
Family History
Family History: Negative Diabetes, Hypertension or CAD
Phy Exam
<Alesha Vigil PA-C - Last Filed: 07/03/24 18:28>
Physical Exam
Physical Exam:
Appears uncomfortable, actively vomiting
General Physical Exam
General Presentation: moderate distress
General Skin: warm and dry
General Habitus: normal
General Mental: alert
Cardiovascular Exam
Cardiovascular Exam: tachycardia
Pulmonary Exam
Pulmonary Exam: lungs clear, no respiratory distress, no crackles and no wheezing
Gastrointestinal Exam
Gastrointestinal Exam: guarding, surgical scar, tender and other (Multiple surgical scars noted. +Tenderness to LUQ with firmness. +Voluntary guarding. )
[place] Coma Scale
Eye Opening: Spontaneous
Verbal Response: Oriented
Motor Response: Obeys Commands
GCS Total Score: 15
Skin Exam
Skin Exam: normal color and warm/dry
Psychiatric Exam
Psychiatric Exam: normal mood/affect
Course
<Osvaldo Chamorro, DO - Last Filed: 07/03/24 11:12>
Orders/Labs/Results
Orders:
Orders
07/03/24 11:06
0.9% Sodium Chloride 1000 ml [Nss] 1,000 ml IV BOLUS
HYDROmorphone [Dilaudid] 1 mg IV NOW STA
Ondansetron Injectable [Zofran] 4 mg IV NOW STA
07/03/24 11:09
CT Abd/pel W Iv And Oral Contr Urgent
Comment:
Reason For Exam: LUQ, vomiting, hx of bowel perforations
Diphenhydramine [Benadryl] 50 mg IV NOW STA
Hydrocortisone Sod Succinate [Solu-Cortef] 200 mg IV NOW STA
Iohexol [Omnipaque] See Protocol PO NOW STA
07/03/24 11:54
C-Reactive Protein Urgent
Comment: ADD ON
Complete Blood Count/With Diff Urgent
Comprehensive Metabolic Panel Urgent
Lactate Level [Lactic Acid] Urgent
Lipase Urgent
07/03/24 12:42
0.9% Sodium Chloride 1000 ml [Nss] 1,000 ml IV BOLUS
07/03/24 12:54
HYDROmorphone [Dilaudid] 0.5 mg IV NOW STA
07/03/24 13:59
Diphenhydramine [Benadryl] 50 mg IV NOW STA
Famotidine [Pepcid] 20 mg IV NOW STA
07/03/24 Dinner
NPO
Allow oral meds: Yes
Allow clear liquids: Sips of Clears
07/03/24 15:09
HYDROmorphone [Dilaudid] 0.5 mg IV NOW STA
07/03/24 16:03
Lactate Level [Lactic Acid] Urgent
07/03/24 17:12
HYDROmorphone [Dilaudid] 1 mg IV NOW STA
07/03/24 17:26
SURGICAL CONSULT Routine
Consulting Provider: Jake Merrill
Was physician already notified: Yes
07/03/24 17:32
Add On- LAB Routine
Tests Added?: CRP
Blood Culture Routine
KOSTAS Source: Blood/Venous
Specimen Description:
07/03/24 17:43
Admit/Transfer Patient As Directed
Co-Sign Provider:
Level of Care: Inpatient admission
Assign to:: Telemetry
Physician / Group: Ramesh/hospitalist
Diagnosis: abd pain, SBO
Reason for Telemetry: Arrhythmia
Date to Stop Telemetry: 07/06/24
Time to Stop Telemetry: 11:00
Reason for Hospitalization: abd pain, SBO
Expected length of stay greater than two midnights?: Yes
ELOS- Estimated Length of Stay in days: 3
I certify the patient meets the requirements for IP care: Yes
07/03/24 17:44
Code Status As Directed
Resuscitation Status: Full Code
PRN Pain Medication Management As Directed
May give lesser potent ordered pain med per pt: Yes
preference::
Protocol:: Medication orders for pain may be administered in a
manner that supports deferring to patient preference
when the pt is:
- Requesting an ordered lesser potent pain medication.
Least to most potent pain medications are defined
as: acetaminophen < NSAID < tramadol < opioids
(morphine, oxycodone, hydromorphone).
- Requesting a lesser dose of the same medication IF
ORDERED.
- Requesting a less intrusive route of administration
if both routes are prescribed by the provider (PO <
IV).
07/03/24 17:50
Morphine Sulfate 2 mg IV Q4HPRN PRN
07/03/24 18:00
Enoxaparin Sodium [Lovenox] 40 mg SC QPM
Piperacillin/Tazo 3.375 Gram [Zosyn] 3.375 gram in 50 ml IV Q6H
07/06/24 11:00
DC Protocol for Telemetry ONCE
Abnormal Lab Results
07/03/24
11:54
Hgb 11.0 L g/dL
(13.0-18.0)
Hct 33.7 L %
(39.0-52.0)
MCV 71.7 L fL
(80.0-94.0)
MCH 23.4 L pg
(27.0-31.0)
MCHC 32.6 L g/dL
(33.0-37.0)
RDW 17.2 H %
(11.5-14.5)
Immature Gran % 0.6 H %
(0-0.5)
BUN 6 L mg/dl
(9-20)
Creatinine 0.6 L mg/dL
(0.7-1.3)
Glucose 233 H mg/dl
(70-99)
Lactic Acid 2.3 H mmol/L
(0.7-2.0)
07/03/24 11:54
07/03/24 11:54
Vital Signs
Initial and Last Documented VS:
Initial Vital Signs
Pulse Resp Pulse Ox
126 18 100
07/03/24 10:53 07/03/24 10:53 07/03/24 10:53
Last Documented Vital Signs
Temp Pulse Resp BP Pulse Ox
98.6 F 83 18 159/83 98
07/03/24 14:08 07/03/24 14:08 07/03/24 14:08 07/03/24 17:26 07/03/24 17:45
<lAesha Vigil PA-C - Last Filed: 07/03/24 18:28>
Orders/Labs/Results
Orders:
Orders
07/03/24 11:06
0.9% Sodium Chloride 1000 ml [Nss] 1,000 ml IV BOLUS
HYDROmorphone [Dilaudid] 1 mg IV NOW STA
Ondansetron Injectable [Zofran] 4 mg IV NOW STA
07/03/24 11:09
CT Abd/pel W Iv And Oral Contr Urgent
Comment:
Reason For Exam: LUQ, vomiting, hx of bowel perforations
Diphenhydramine [Benadryl] 50 mg IV NOW STA
Hydrocortisone Sod Succinate [Solu-Cortef] 200 mg IV NOW STA
Iohexol [Omnipaque] See Protocol PO NOW STA
07/03/24 11:54
C-Reactive Protein Urgent
Comment: ADD ON
Complete Blood Count/With Diff Urgent
Comprehensive Metabolic Panel Urgent
Lactate Level [Lactic Acid] Urgent
Lipase Urgent
07/03/24 12:42
0.9% Sodium Chloride 1000 ml [Nss] 1,000 ml IV BOLUS
07/03/24 12:54
HYDROmorphone [Dilaudid] 0.5 mg IV NOW STA
07/03/24 13:59
Diphenhydramine [Benadryl] 50 mg IV NOW STA
Famotidine [Pepcid] 20 mg IV NOW STA
07/03/24 Dinner
NPO
Allow oral meds: Yes
Allow clear liquids: Sips of Clears
07/03/24 15:09
HYDROmorphone [Dilaudid] 0.5 mg IV NOW STA
07/03/24 16:03
Lactate Level [Lactic Acid] Urgent
07/03/24 17:12
HYDROmorphone [Dilaudid] 1 mg IV NOW STA
07/03/24 17:26
SURGICAL CONSULT Routine
Consulting Provider: Jake Merrill
Was physician already notified: Yes
07/03/24 17:32
Add On- LAB Routine
Tests Added?: CRP
Blood Culture Routine
KOSTAS Source: Blood/Venous
Specimen Description:
07/03/24 17:43
Admit/Transfer Patient As Directed
Co-Sign Provider:
Level of Care: Inpatient admission
Assign to:: Telemetry
Physician / Group: Ramesh/hospitalist
Diagnosis: abd pain, SBO
Reason for Telemetry: Arrhythmia
Date to Stop Telemetry: 07/06/24
Time to Stop Telemetry: 11:00
Reason for Hospitalization: abd pain, SBO
Expected length of stay greater than two midnights?: Yes
ELOS- Estimated Length of Stay in days: 3
I certify the patient meets the requirements for IP care: Yes
07/03/24 17:44
Code Status As Directed
Resuscitation Status: Full Code
PRN Pain Medication Management As Directed
May give lesser potent ordered pain med per pt: Yes
preference::
Protocol:: Medication orders for pain may be administered in a
manner that supports deferring to patient preference
when the pt is:
- Requesting an ordered lesser potent pain medication.
Least to most potent pain medications are defined
as: acetaminophen < NSAID < tramadol < opioids
(morphine, oxycodone, hydromorphone).
- Requesting a lesser dose of the same medication IF
ORDERED.
- Requesting a less intrusive route of administration
if both routes are prescribed by the provider (PO <
IV).
07/03/24 17:50
Morphine Sulfate 2 mg IV Q4HPRN PRN
07/03/24 18:00
Enoxaparin Sodium [Lovenox] 40 mg SC QPM
Piperacillin/Tazo 3.375 Gram [Zosyn] 3.375 gram in 50 ml IV Q6H
07/06/24 11:00
DC Protocol for Telemetry ONCE
Abnormal Lab Results
07/03/24
11:54
Hgb 11.0 L g/dL
(13.0-18.0)
Hct 33.7 L %
(39.0-52.0)
MCV 71.7 L fL
(80.0-94.0)
MCH 23.4 L pg
(27.0-31.0)
MCHC 32.6 L g/dL
(33.0-37.0)
RDW 17.2 H %
(11.5-14.5)
Immature Gran % 0.6 H %
(0-0.5)
BUN 6 L mg/dl
(9-20)
Creatinine 0.6 L mg/dL
(0.7-1.3)
Glucose 233 H mg/dl
(70-99)
Lactic Acid 2.3 H mmol/L
(0.7-2.0)
07/03/24 11:54
07/03/24 11:54
Vital Signs
Initial and Last Documented VS:
Initial Vital Signs
Pulse Resp Pulse Ox
126 18 100
07/03/24 10:53 07/03/24 10:53 07/03/24 10:53
Last Documented Vital Signs
Temp Pulse Resp BP Pulse Ox
98.6 F 83 18 159/83 98
07/03/24 14:08 07/03/24 14:08 07/03/24 14:08 07/03/24 17:26 07/03/24 17:45
<Alesha Vigil PA-C - Last Filed: 07/03/24 18:28>
MDM/Problems Addressed
Differential Diagnosis Includes:
34yoM here with LUQ pain and vomiting. Extensive past surgical history with a history of 2 prior bowel perforations. Patient worried that he has a another perforation. He is in moderate distress on exam and actively vomiting. He is tachycardic
with otherwise stable vitals. Multiple surgical scars present on abdomen. Voluntary guarding present. Differential diagnosis includes but is not limited to: Perforated viscus, small bowel obstruction, diverticulitis
Initial ED plan: Check abdominal labs, lactate, and CT abdomen. IV Dilaudid, Zofran, and fluid bolus for symptoms.
<Alesha Vigil PA-C - Last Filed: 07/03/24 18:28>
*Critical Care Note
Total Time (30-74mins, 75-104mins- exclusive of procedures): Not Applicable
<Alesha Vigil PA-C - Last Filed: 07/03/24 18:28>
Update Note
Update Note:
Labs reveal an elevated lactate at 2.3. White count and remainder of labs unremarkable. CT abdomen shows evidence of a mild/partial small bowel obstruction. Attempted to get in contact with patient's surgical team at [facility] for several hours.
Per transfer center, [facility] is currently on divert and not accepting transfers at this time. Patient was admitted here for further management.
After admission, I received a call back from [facility]. I spoke with Dr. Ford who knows the patient. Dr. Ford recommending conservative treatment and strongly advises against any surgical intervention given his history. He states that
patient's abdomen will frequently present as if he has peritonitis but this is his baseline. No upcoming surgeries are planned contrary to patient's report.
ED Attending Note
<Osvaldo Chamorro DO - Last Filed: 07/03/24 11:12>
ED Attending Note
Patient seen and examined by attending physician: Yes
I performed the substantive portion of visit, reviewed & personally made and approve the management plan that is documented in note by myself or TAM.: Yes
ED Attending Note:
I have seen and evaluated the patient with a [id number] encounter. I have spoken to the advance practicer provider and involved in the medical history, the physical exam, medical decision making.
Evaluation and management service: agree unless noted differently below.
Results interpretation: agree unless noted differently below.
Focused HPI: 34-year-old male presenting with worsening abdominal pain. Patient states he has had multiple abdominal surgeries in the past. He states he feels like this is a another bowel perforation
Physical exam: Uncomfortable. Voluntary guarding. Discomfort noted to left upper quadrant. Multiple abdominal scars noted
Medical Decision Making: Will obtain CT for any evidence of perforation
<Alesha Vigil PA-C - Last Filed: 07/03/24 18:28>
-
Portions of this chart may have been created with voice recognition software.� Occasional wrong word or��sound alike� substitutions may have occurred due to the inherent limitations of voice recognition software.
Discharge Plan
Departure
Patient Disposition: Admit
Date of Disposition: 07/03/24
Time of Disposition: 17:19
Presentation/result/management discussed w/ accepting MD/DO: Hospitalist
Discharge Problem:
Partial bowel obstruction
Interventions
Interventions:
*Risk Screen - Suicide Last Done: 07/03/24 11:43
*General Assessment Last Done: 07/03/24 11:41
*Neglect/Abuse Screening Last Done: 07/03/24 11:42
ED- Fall Risk Assessment Last Done: 07/03/24 11:43
*ED COVID-19 Vaccine History Last Done: 07/03/24 11:41
XN-Blfnoa-Dirvbrurlp Assessment Last Done: 07/03/24 12:23
[2024-07-03] MEDS: OMNIPAQUE 50 ML PO (11:46)
[2024-07-03] MEDS: SOLU-CORTEF 200 MG IV (11:49)
[2024-07-03] MEDS: BENADRYL 50 MG IV ×2 (11:49→14:04)
[2024-07-03] MEDS: ZOFRAN 4 MG IV (11:49)
[2024-07-03] MEDS: DILAUDID 1 MG IV ×2 (11:50→17:24)
[2024-07-03] MEDS: NSS 1000 IV ×2 (11:53→15:15)
[2024-07-03 12:28] LABS: % Basophils 0.4 % (0-2); % Eosinophils 4.7 % (0-6); % Immature Granulocytes 0.6 % (0-0.5); % Lymphocytes 28.3 % (20.5-51.1); % Monocytes 8.6 % (1.7-9.3); % Neutrophils 57.4 % (42.2-75.2); Absolute Eosinophils 0.2 10^3/uL (0-0.7); Absolute Lymphocytes 1.4 10^3/uL (1.2-3.4); Absolute Monocytes 0.4 10^3/uL (0.1-0.6); Absolute Neutrophils 2.8 10^3/uL (1.4-6.5); Hematocrit 33.7 % (39.0-52.0); Mean Corp Hgb Conc. 32.6 g/dL (33.0-37.0); Mean Corpuscular Hgb 23.4 pg (27.0-31.0); Mean Corpuscular Volume 71.7 fL (80.0-94.0); Nucleated Red Blood Cells % 0 % (-); Platelet Count 314 10^3/uL (130-400); Red Cell Dist. Width 17.2 % (11.5-14.5); White Blood Cell Count 4.9 10^3/uL (4.8-10.8)
[2024-07-03 12:36] LABS: Lactic Acid 2.3 mmol/L (0.7-2.0)
[2024-07-03 12:38] LABS: ALT (SGPT) 25 U/L (0-50); AST (SGOT) 25 U/L (17-59); Albumin 3.9 g/dl (3.5-5.0); Alkaline Phosphatase 79 U/L (38-126); Blood Urea Nitrogen 6 mg/dl (9-20); Calcium 9.4 mg/dl (8.4-10.2); Carbon Dioxide 22 mmol/L (22-30); Chloride 103 mmol/L (98-107); Estimated Creatinine Clearance > 125 ml/min; Glucose 233 mg/dl (70-99); Lipase 102 U/L (23-300); Sodium 139 mmol/L (135-145); Total Bilirubin 0.3 mg/dl (0.2-1.3); Total Protein 6.4 g/dl (6.3-8.2); eGFR > 60.00
[2024-07-03] MEDS: DILAUDID 0.5 MG IV ×2 (12:57→15:14)
--- NOTE | 2024-07-03 17:25 | HPS.HSE ---
Family Physician
-
Family Physician: Aldo Cheng
Chief Complaint
-
Abd pain
History of Present Illness
HPI: 34 yo M with an extensive surgical history with multiple previous abdominal surgeries (12 abdominal surgeries with two prior bowel perforations; last bowel perforation 6 months ago with surgery at [facility] with anastomosis creation), h/o MRSA
bacteremia likely source from nonhealing abdominal wound, ACD; p/w LLQ abdominal pain that started the day prior, with fever 103.
He also c/o N/V.
His last BM was 4 days ago and he denies passing flatus.
Medical History
Past Medical History
Past Medical History: Reports Other
Additional Past Medical History:
extensive surgical history with multiple previous abdominal surgeries (12 abdominal surgeries with two prior bowel perforations)
h/o MRSA bacteremia likely source from nonhealing abdominal wound
ACD
Past Surgical History: Reports Appendectomy, Cholecystectomy and Other
Additional Past Surgical History:
Several abdominal surgeries
Ileostomy
Hernia surgery
Social History
Tobacco: Non-smoker
Alcohol: None
Living: With Family
Family History
Family History: Not pertinent
Allergies / Home Medications
Allergies reflects when Allergies were last updated in [employer].
Home Medications with original date entered in [employer]
Allergy/Medication List:
Allergies
Allergy/AdvReac Type Severity Reaction Status Date / Time
Iodinated Contrast Media Allergy Itching Verified 07/03/24 10:53
iohexol [From Omnipaque] Allergy Anaphylaxis Verified 07/03/24 10:53
Sulfa (Sulfonamide Allergy Unknown Verified 07/03/24 10:53
Antibiotics)
Home Medications
multivitamin with folic acid 400 mcg tablet (Tab-A-Irving) 1 tab PO DAILY Supplement 12/11/21
Review of Systems
-
Abdomen/GI: Reports Abdominal Pain and Nausea
Physical Exam
Vital Signs
Vital Signs
Temp Pulse Resp BP Pulse Ox
37.0 C 83 18 130/85 98
07/03/24 14:08 07/03/24 14:08 07/03/24 14:08 07/03/24 15:00 07/03/24 15:19
Physical Exam
General: Well Developed, Well Nourished, No Apparent Distress, Conversant and Pain
HEENT: NormoCephalic, Moist mucous membranes and Atraumatic
Respiratory: Clear and Non Labored Respirations; No Accessory Resp Muscle Use
Cardiac: S1/S2 and Regular Rhythm; No Murmur or Rub
GI: Tender and Distended; No Normal Bowel Sounds
Rectal: Deferred by Provider
Musculoskeletal: No Clubbing, No Cyanosis and No Edema
Skin: No Rash
Neuro: Awake and Alert
Psych: Calm and Intact Judgment/Insight
Laboratory Results
-
07/03/24 11:54
07/03/24 11:54
Laboratory Results
Lactic Acid 2.0 mmol/L (0.7-2.0) 07/03/24 16:03
Total Bilirubin 0.3 mg/dl (0.2-1.3) 07/03/24 11:54
AST 25 U/L (17-59) 07/03/24 11:54
ALT 25 U/L (0-50) 07/03/24 11:54
Alkaline Phosphatase 79 U/L (38-126) 07/03/24 11:54
Lipase 102 U/L (23-300) 07/03/24 11:54
Data Reviewed
-
CT Scan: Report Reviewed by me
Lab Data: Labs Reviewed by me
Impression/Plan
-
HPI: 34 yo M with an extensive surgical history with multiple previous abdominal surgeries (12 abdominal surgeries with two prior bowel perforations; last bowel perforation 6 months ago with surgery at [facility] with anastomosis creation), h/o MRSA
bacteremia likely source from nonhealing abdominal wound, ACD; p/w LLQ abdominal pain that started the day prior, with fever 103.
He also c/o N/V.
His last BM was 4 days ago and he denies passing flatus.
Of note, he is due to return to [facility] on July 09 for apparently repeat surgery.
CT AP from admission in ED:
Mild dilatation involving a small bowel anastomosis as well as a few upstream small bowel loops consistent with mild/partial small bowel obstruction. No free air.
A/P:
# Abd pain likely due to small bowel obstruction.
keep NPO with IVF
pain control with IV Morphine
IV Zofran PRN for nausea
Defer NGT to GS
GS CS
# Fever at home
Check CRP
Check blood culture
cover with empiric Zosyn for now
# h/o extensive surgical history with multiple previous abdominal surgeries (12 abdominal surgeries with two prior bowel perforations; last bowel perforation 6 months ago with surgery at [facility] with anastomosis creation), # h/o MRSA bacteremia
likely source from nonhealing abdominal wound
# ACD
DVT ppx: Lovenox SQ
FC
[2024-07-03] MEDS: ZOSYN 50 IV (18:28)
--- NOTE | 2024-07-03 20:38 | W.PN.UPDATE ---
Update Note
Progress Note Update
arrived to patient's room for general surgery consult; nurse informed me that patient left AMA due to baby-sitter issue so surgical consult not performed
--- NOTE | 2024-07-04 12:57 | W.DCSUMMARY ---
Addendum entered and electronically signed by Paty Chandler MD 07/09/24 08:56:
# Mild lactic acidosis POA
Addendum entered and electronically signed by Paty Chandler MD 07/04/24 14:04:
total DC time > 50 min
Original Note:
Discharge Summary
Discharge Data
Date of Admission: 07/03/24
Date of Discharge: 07/03/24
-
Pending Results: No
Hospital Course
Principal Diagnosis:
Abdominal pain likely due to small bowel obstruction.
Chronic Diagnoses:�
Extensive surgical history with multiple previous abdominal surgeries (12 abdominal surgeries with two prior bowel perforations; last bowel perforation 6 months ago with surgery at [facility] with anastomosis creation),
History of MRSA bacteremia likely source from nonhealing abdominal wound
Consultations:�
General surgery
Procedures:�
None
Clinical course:�
This is a 34 year old male with past medical history as stated above, who presented with severe abdominal pain.
Problem 1:
Abd pain likely due to small bowel obstruction.
His CT AP showed mild dilatation involving a small bowel anastomosis as well as a few upstream small bowel loops consistent with mild/partial small bowel obstruction; no free air.
He was given IV morphine for pain control.
He was started with Zofran due to reported fever at home.
Unfortunately he left AMA.
Discharge Plan
-
Patient Disposition: Against Medical Advice
Referrals:
Aldo Cheng MD [Family Provider] -
Prescriptions:
No Action
multivitamin with folic acid [Tab-A-Irving] 1 TABLET tablet
1 tab PO DAILY
Discharge Orders:
Discharge Patient (As Directed); Ordered 07/04/24
Ordered By: Paty Chandler
Discharge Date and Time
Print Language: [place]
--- NOTE | 2024-07-08 08:13 | PN.CDI ---
CDI
- -
CDI:
Physician Documentation Request
Admit Date: 07/03/24 17:49
Dear Doctor Ramesh,
Please review the following and provide your response in the progress notes.
Clinical Indicators:
Pt admitted for small bowel obstruction.
Lactic acid elevated on admission.
Laboratory Tests
07/03/24 07/03/24
11:54 16:03
Lactic Acid 2.3 H 2.0
Based on the above, could you clarify in the progress notes, the appropriate diagnosis, if significant, that supports the above abnormalities and additional evaluation, monitoring and/or treatment rendered:
Lactic acidosis
Insignificant abnormal lab value
Other
Use of terms such as suspected, likely, concern for, or probable (associated with a specific diagnosis that is being evaluated, monitored, or treated as if it exists) are acceptable and can be coded in the inpatient setting, when documented at the
time of discharge.
Thank you,
Sepideh Patel RN, BSN
CDI Specialist
Available via [place] [employer]
Please use your independent medical judgment in providing your response.
== END 2024-07-03 19:30 | disposition left against medical advice (07) | DRG 389 ==
LOC: ED 17:49
PROVIDERS: Physician Assistant; ADMITTING PHYSICIAN Internal Medicine; EMERGENCY PHYSICIAN Student in an Organized Health Care Education/Training Program; FAMILY PHYSICIAN Internal Medicine
DX: K56.600 Partial intestinal obstruction, unspecified as to cause (principal); E87.20 Acidosis, unspecified; R50.9 Fever, unspecified; F17.200 Nicotine dependence, unspecified, uncomplicated; R11.2 Nausea with vomiting, unspecified; Q43.0 Meckel's diverticulum (displaced) (hypertrophic); Z86.14 Personal history of Methicillin resistant Staphylococcus aureus infection; Z88.2 Allergy status to sulfonamides; Z91.041 Radiographic dye allergy status; Z90.49 Acquired absence of other specified parts of digestive tract; Z87.19 Personal history of other diseases of the digestive system
CPT/HCPCS: 74177; 80053; 83605; 83690; 85025; 86140; 87040; 96361; 96374; 96375; 96376; 99285; Q9967

== ENCOUNTER 2024-07-05 17:12 | Emergency (ER) | payer OTHER, SELFPAY ==
[2024-07-05 17:12] VITALS: BMI 26.2
[2024-07-05 17:15] VITALS: BP 148/78
--- NOTE | 2024-07-05 17:49 | ED.GENMED ---
History of Present Illness
General
Chief Complaint: Abdominal Pain
Time Seen by Provider: 07/05/24 17:49
History of Present Illness
History of Present Illness:
HPI: The patient was admitted here 07/03/2024 due to concerns for small bowel obstruction. He is known to [facility] and that day, [facility] stated they were on divert and would not accept him. He has had multiple surgeries in the past including
cholecystectomy, BELKIS, appendectomy, surgery for Meckel's diverticulum, surgery for SBO, has had bowel perforation in 2019 and 2021.
EXAM:
GENERAL: The patient appears somewhat uncomfortable and is actively retching
HEENT: Moist oral mucosa
CARDIOVASCULAR: No murmurs, normal heart rate, regular rhythm, No chest wall tenderness
PULMONARY: No respiratory distress, breath sounds are clear and equal
ABDOMEN: Somewhat firm abdomen but with no peritoneal signs, moderate diffuse tenderness, surgical scars noted to the abdominal wall
NEUROLOGIC: Excellent strength all extremities, no coordination deficits
PSYCHIATRIC: Appropriate mental status, normal insight and judgement
EXTREMITIES: Nontender, no edema, moves all extremities equally
SKIN: No rash, no lesions
TIME OF INITIAL ENCOUNTER: 6 PM
NUMBER AND COMPLEXITY OF PROBLEMS ADDRESSED AT THE ENCOUNTER
� Chronic conditions affecting care: See summary of surgical procedures above
� Acute Exacerbation and/or Progression of Chronic Illness: This is an acute but recurring problem
� Differential Diagnosis includes: Bowel obstruction, bowel perforation, nonspecific abdominal pain
AMOUNT AND/OR COMPLEXITY OF DATA TO BE REVIEWED AND ANALYZED
� I performed an independent evaluation of and my interpretation is:
EKG:
CT: CT imaging shows improvement with no evidence of bowel obstruction
X-rays:
Laboratory Studies: White 9.0, hemoglobin 10.8, chemistries unremarkable
Other:
� Review of other/old records: I reviewed the CT report and the CT images from last visit; I also reviewed the discharge summary
� Clinical information was obtained by an independent historian: None needed
� Prescriptions/Medications Considered but not given:
� Further testing considered but not performed:
RISK OF COMPLICATIONS AND/OR MORBIDITY OR MORTALITY OF PATIENT MANAGEMENT
� Social determinants of health affecting care:
� Discussion with other providers: I did speak to radiology here who suggested holding off on CT however I did speak to Dr. Jake Merrill covering for general surgery who recommends repeating CT
� Escalation of care including admission/observation vs risk of discharge considered: The patient was found to have a bowel obstruction but was not able to be transferred to [facility] 2 days ago. He was admitted here but signed
out AMA as he needed childcare. Will repeat CT. He states that his vomit tastes feculent. CT imaging reassuring. He is to follow-up with his doctors at [facility]
Past History
Past History
ED Past Medical History: Other (small bowel obstruction, perforated bowel, MRSA bacteremia, infectious endocarditis, multiple abdominal surgeries, intra-abdominal fistula)
ED Past Surgical History: Appendectomy, Cholecystectomy and Other (abdominal abscess drained, history of Meckel's Diverticulum Surgery, partial bowel resection)
Social History
Tobacco: Smoker
Alcohol: None
Drug: None
Personal: Single
Living: alone
Employment: Employed
Family History
Family History: Negative Diabetes, Hypertension or CAD
Phy Exam
Physical Exam
Physical Exam:
See HPI
Course
Orders/Labs/Results
Orders:
Orders
07/05/24 18:05
0.9% Sodium Chloride 1000 ml [Nss] 1,000 ml IV BOLUS
07/05/24 18:10
CT Abd/pelvis W Iv Cont Urgent
Comment:
Reason For Exam: abd pain, worse pain vomiting; had contrast 2d ago
0.9% Sodium Chloride 1000 ml [Nss] 1,000 ml IV BOLUS
HYDROmorphone [Dilaudid] 1 mg IV NOW STA
Ondansetron Injectable [Zofran] 4 mg IV NOW STA
07/05/24 18:12
Diphenhydramine [Benadryl] 50 mg IV NOW STA
07/05/24 18:14
MethylPREDNISolone PF [Solu-Medrol Pf] 200 mg IV ONCE ONE
07/05/24 18:19
Complete Blood Count/With Diff Urgent
Comprehensive Metabolic Panel Urgent
Lactic Acid Urgent
07/05/24 21:22
Ondansetron Injectable [Zofran] 4 mg IV NOW STA
Abnormal Lab Results
07/05/24
18:19
RBC 4.59 L 10^6/uL
(4.70-6.10)
Hgb 10.8 L g/dL
(13.0-18.0)
Hct 33.2 L %
(39.0-52.0)
MCV 72.3 L fL
(80.0-94.0)
MCH 23.5 L pg
(27.0-31.0)
MCHC 32.5 L g/dL
(33.0-37.0)
RDW 17.8 H %
(11.5-14.5)
Absolute Monos (auto) 0.7 H 10^3/uL
(0.1-0.6)
Glucose 192 H mg/dl
(70-99)
07/05/24 18:19
07/05/24 18:19
Vital Signs
Initial and Last Documented VS:
Initial Vital Signs
Temp Pulse Resp BP Pulse Ox
99.2 F 122 20 148/78 99
07/05/24 17:15 07/05/24 17:15 07/05/24 17:15 07/05/24 17:15 07/05/24 17:15
Last Documented Vital Signs
Temp Pulse Resp BP Pulse Ox
99.2 F 72 16 129/83 99
07/05/24 17:15 07/05/24 21:07 07/05/24 21:07 07/05/24 21:07 07/05/24 21:07
*Critical Care Note
Total Time (30-74mins, 75-104mins- exclusive of procedures): Not Applicable
ED Attending Note
-
Portions of this chart may have been created with voice recognition software.� Occasional wrong word or��sound alike� substitutions may have occurred due to the inherent limitations of voice recognition software.
Discharge Plan
Departure
Patient Disposition: Home (Routine Discharge)
Date of Disposition: 07/05/24
Time of Disposition: 21:21
Patient with high blood pressure during this ER visit?: Yes
Discharge Problem:
Abdominal pain
Instructions: Abdominal Pain
Prescriptions:
No Action
multivitamin with folic acid [Tab-A-Irving] 1 TABLET tablet
1 tab PO DAILY
Referrals:
NONE,* [Family Provider] -
Activity Restrictions/Additional Instructions:
The CAT scan today shows no sign of bowel obstruction�the mild bile obstruction from earlier appears to have resolved however the radiologist today does see constipation. Follow-up with your doctors at [facility]. Take copies of your CAT scans
with you.
Interventions
Interventions:
*Risk Screen - Suicide Last Done: 07/05/24 20:05
*General Assessment Last Done: 07/05/24 20:05
*Neglect/Abuse Screening Last Done: 07/05/24 20:05
*ED COVID-19 Vaccine History Last Done: 07/05/24 20:05
CI-Fenzan-Hqitwwgpgd Assessment Last Done: 07/05/24 18:40
Discharge Date and Time
Print Language: LITHUANIAN
[2024-07-05] MEDS: NSS 1000 IV (18:31)
[2024-07-05] MEDS: BENADRYL 50 MG IV (18:32)
[2024-07-05] MEDS: ZOFRAN 4 MG IV ×2 (18:32→21:32)
[2024-07-05] MEDS: SOLU-MEDROL PF 200 MG IV (18:32)
[2024-07-05] MEDS: DILAUDID 1 MG IV (18:33)
[2024-07-05 18:38] LABS: % Basophils 0.3 % (0-2); % Eosinophils 2.3 % (0-6); % Immature Granulocytes 0.3 % (0-0.5); % Lymphocytes 21.4 % (20.5-51.1); % Monocytes 8.2 % (1.7-9.3); % Neutrophils 67.5 % (42.2-75.2); Absolute Eosinophils 0.2 10^3/uL (0-0.7); Absolute Lymphocytes 1.9 10^3/uL (1.2-3.4); Absolute Monocytes 0.7 10^3/uL (0.1-0.6); Absolute Neutrophils 6.1 10^3/uL (1.4-6.5); Hematocrit 33.2 % (39.0-52.0); Hemoglobin 10.8 g/dL (13.0-18.0); Mean Corp Hgb Conc. 32.5 g/dL (33.0-37.0); Mean Corpuscular Hgb 23.5 pg (27.0-31.0); Mean Corpuscular Volume 72.3 fL (80.0-94.0); Nucleated Red Blood Cells % 0 % (-); Platelet Count 327 10^3/uL (130-400); Red Blood Cell Count 4.59 10^6/uL (4.70-6.10); Red Cell Dist. Width 17.8 % (11.5-14.5)
[2024-07-05 18:48] LABS: Lactic Acid 1.8 mmol/L (0.7-2.0)
[2024-07-05 19:10] LABS: ALT (SGPT) 28 U/L (0-50); AST (SGOT) 24 U/L (17-59); Alkaline Phosphatase 78 U/L (38-126); Blood Urea Nitrogen 13 mg/dl (9-20); Calcium 9.5 mg/dl (8.4-10.2); Carbon Dioxide 24 mmol/L (22-30); Chloride 102 mmol/L (98-107); Estimated Creatinine Clearance > 125 ml/min; Glucose 192 mg/dl (70-99); Potassium 3.9 mmol/L (3.5-5.1); Sodium 138 mmol/L (135-145); Total Bilirubin 0.2 mg/dl (0.2-1.3); Total Protein 6.6 g/dl (6.3-8.2); eGFR > 60.00
[2024-07-05 21:07] VITALS: BP 129/83
== END 2024-07-05 21:41 | disposition home or self-care (01) ==
LOC: EMR 17:12
PROVIDERS: EMERGENCY PHYSICIAN Emergency Medicine
DX: R10.9 Unspecified abdominal pain (principal); F17.200 Nicotine dependence, unspecified, uncomplicated; Z86.14 Personal history of Methicillin resistant Staphylococcus aureus infection; Z90.49 Acquired absence of other specified parts of digestive tract
CPT/HCPCS: 99284; 96374; 96375; 96376; 96361; 74177; 80053; 83605; 85025; Q9967

== ENCOUNTER 2024-09-18 14:22 | Emergency (ER) | payer OTHER, SELFPAY ==
[2024-09-18 14:24] VITALS: BP 146/102
--- NOTE | 2024-09-18 15:22 | ED.GENMED ---
History of Present Illness
General
Chief Complaint: Abdominal Pain
Time Seen by Provider: 09/18/24 15:08
History of Present Illness
History of Present Illness:
34yoM hx extensive abdominal surgeries including 2 bowel perforations, multiple bowel obstructions, appendectomy, cholecystectomy presenting with diffuse abdominal pain greatest in the LUQ starting last night with associated vomiting. Pt states last
bowel movement was 4 days ago, not currently passing flatus. Pt reports fever Tmax 101 today. Pt denies any cough, chest pain, shortness of breath, or urinary symptoms. Pt states his surgeon is Dr. Tae Ford at [facility]. Of note,
patient states that last week his children had a GI illness that he thinks he caught.
Past History
Past History
ED Past Medical History: Other (small bowel obstruction, perforated bowel, MRSA bacteremia, infectious endocarditis, multiple abdominal surgeries, intra-abdominal fistula)
ED Past Surgical History: Appendectomy, Cholecystectomy and Other (abdominal abscess drained, history of Meckel's Diverticulum Surgery, partial bowel resection)
Social History
Tobacco: Smoker
Alcohol: None
Drug: None
Personal: Single
Living: alone
Employment: Employed
Family History
Family History: Negative Diabetes, Hypertension or CAD
Phy Exam
Physical Exam
Physical Exam:
General: Alert, retching
Head: NCAT
Eyes: clear conjunctiva
Neck: supple
Cardiac: regular rate and rhythm, no murmur
Lungs: clear to auscultation bilaterally. No wheezes, rales, or rhonchi. Speaking full unlabored sentences. No respiratory distress.
Abdomen: hard, diffuse tenderness. multiple well healed surgical scars
MSK: no lower extremity edema bilaterally. No deformity
Skin: warm, dry
Neuro: Alert and oriented x3. no focal deficits
Course
Orders/Labs/Results
Orders:
Orders
09/18/24 15:17
CT Abd/pel W Iv And Oral Contr Urgent
Comment:
Reason For Exam: vomiting, not passing gas, diffuse tender
0.9% Sodium Chloride 1000 ml [Nss] 1,000 ml IV BOLUS
Iohexol [Omnipaque] See Protocol PO NOW STA
Ondansetron Injectable [Zofran] 4 mg IV NOW STA
09/18/24 15:19
Diphenhydramine [Benadryl] 50 mg IV NOW STA
09/18/24 15:20
Diphenhydramine [Benadryl] 50 mg IV NOW STA
Hydrocortisone Sod Succinate [Solu-Cortef] 200 mg IV NOW STA
09/18/24 15:22
Morphine Sulfate 4 mg IV NOW STA
09/18/24 16:09
Complete Blood Count/With Diff Urgent
Comprehensive Metabolic Panel Urgent
Lactic Acid Urgent
Lipase Urgent
09/18/24 16:10
Blood Culture Q30M
[facility] Source: Blood/Venous
Specimen Description:
09/18/24 16:17
Blood Culture Q30M
[facility] Source: Blood/Venous
Specimen Description:
09/18/24 17:10
HYDROmorphone [Dilaudid] 0.5 mg IV NOW STA
09/18/24 18:54
HYDROmorphone [Dilaudid] 0.5 mg IV NOW STA
09/18/24 19:50
Diphenhydramine [Benadryl] 12.5 mg IV NOW STA
Abnormal Lab Results
09/18/24
16:09
MCV 77.2 L fL
(80.0-94.0)
MCH 25.7 L pg
(27.0-31.0)
RDW 18.3 H %
(11.5-14.5)
Glucose 276 H mg/dl
(70-99)
Total Bilirubin 0.1 L mg/dl
(0.2-1.3)
09/18/24 16:09
09/18/24 16:09
Vital Signs
Initial and Last Documented VS:
Initial Vital Signs
Temp Pulse Resp BP Pulse Ox
98.9 F 99 16 146/102 100
09/18/24 14:24 09/18/24 14:24 09/18/24 14:24 09/18/24 14:24 09/18/24 14:24
Last Documented Vital Signs
Temp Pulse Resp BP Pulse Ox
98.6 F 75 14 135/86 96
09/18/24 19:48 09/18/24 19:48 09/18/24 19:48 09/18/24 19:48 09/18/24 19:48
MDM/Problems Addressed
Differential Diagnosis Includes:
bowel perforation, bowel obstruction, diverticulitis, UTI, bactermia
MDM/Problems Addressed:
Labs reviewed. White count 7.1 with no left shift or bandemia. Electrolytes, LFTs within normal limits. Hyperglycemia, anion gap 13, not in DKA. CT abdomen/pelvis shows Mild prominence of the small bowel in the region of the anastomosis however
contrast is seen distally, and extending to the rectum. This is may represent an element of mild delayed transit without obstruction. There is wall thickening within the small bowel which likely represents enteritis. Discussed results with patient
at bedside. Suspect enteritis visualized on CT viral as pt's children had nausea/vomiting/diarrhea recently. Given afebrile here, not tachycardic, no WBC, will hold on antibiotics.
Upon reevaluation, patient requesting discharge. Patient denies any dysuria or hematuria. Afebrile during extended stay in ER. Not tachycardic. Normotensive. Low suspicion for UTI. Stable for discharge with PCP and surgery follow-up
*Critical Care Note
Total Time (30-74mins, 75-104mins- exclusive of procedures): Not Applicable
ED Attending Note
-
Portions of this chart may have been created with voice recognition software.� Occasional wrong word or��sound alike� substitutions may have occurred due to the inherent limitations of voice recognition software.
Discharge Plan
Departure
Patient Disposition: Home (Routine Discharge)
Date of Disposition: 09/18/24
Time of Disposition: 20:35
Patient with high blood pressure during this ER visit?: Yes
Discharge Problem:
Abdominal pain
Instructions: Abdominal Pain, BLOOD PRESSURE
Prescriptions:
New
ondansetron 4 mg tablet,disintegrating
4 mg PO Q8H 5 Days Qty: 15 0RF
Referrals:
NONE,* [Family Provider] -
Activity Restrictions/Additional Instructions:
Take Zofran as needed for nausea/vomiting
Take Tylenol 975 mg every 6 as needed for pain
Follow-up with your primary care doctor in 1 to 2 days. Follow-up with surgeons next week
Return to the emergency department for persistent vomiting, inability to tolerate water, burning with urination or new/worsening symptoms
Interventions
Interventions:
*Risk Screen - Suicide Last Done: 09/18/24 14:24
*General Assessment Last Done: 09/18/24 14:24
*Neglect/Abuse Screening Last Done: 09/18/24 14:24
ED- Fall Risk Assessment Last Done: 09/18/24 16:47
*ED COVID-19 Vaccine History Last Done: 09/18/24 15:41
*Nursing Disposition Last Done: 09/18/24 20:46
LQ-Dckdzu-Rpmuajszpd Assessment Last Done: 09/18/24 16:47
Discharge Date and Time
Discharge Date/Time: 09/18/24 20:46
Print Language: ANGUILLAN
[2024-09-18 15:41] VITALS: BMI 26.9
--- NOTE | 2024-09-18 16:04 | EDRN ---
Pt says he thinks he has another bowel obstruction. Pt has had 12 surgeries on his abdomen, none of them done here. Pt complains of distended stomach and vomiting which started 2 days ago. Pt says his children came home sick from school couple
days ago so he thought he caught what they had however pt has not had a BM in 4 -5 days. Pt had fever at home 101.4 for which he took tylenol. Pt was at work and felt his temp going back up so he took more tylenol around 1200. Last vomited while
in front of ED. No cp, sob, urinary symptoms, cough/chills.
[2024-09-18] MEDS: NSS 1000 IV (16:18)
[2024-09-18] MEDS: ZOFRAN 4 MG IV (16:18)
[2024-09-18] MEDS: MORPHINE SULFATE 4 MG IV (16:20)
[2024-09-18 16:21] LABS: % Basophils 0.4 % (0-2); % Eosinophils 5.9 % (0-6); % Immature Granulocytes 0.1 % (0-0.5); % Lymphocytes 34.4 % (20.5-51.1); % Neutrophils 51.2 % (42.2-75.2); Absolute Eosinophils 0.4 10^3/uL (0-0.7); Absolute Lymphocytes 2.5 10^3/uL (1.2-3.4); Absolute Monocytes 0.6 10^3/uL (0.1-0.6); Absolute Neutrophils 3.7 10^3/uL (1.4-6.5); Hemoglobin 13.3 g/dL (13.0-18.0); Mean Corp Hgb Conc. 33.3 g/dL (33.0-37.0); Mean Corpuscular Hgb 25.7 pg (27.0-31.0); Mean Corpuscular Volume 77.2 fL (80.0-94.0); Mean Platelet Volume 9.1 fL (7.4-10.4); Nucleated Red Blood Cells % 0 % (-); Platelet Count 262 10^3/uL (130-400); Red Blood Cell Count 5.18 10^6/uL (4.70-6.10); Red Cell Dist. Width 18.3 % (11.5-14.5); White Blood Cell Count 7.1 10^3/uL (4.8-10.8)
[2024-09-18] MEDS: BENADRYL 50 MG IV (16:27)
--- NOTE | 2024-09-18 16:28 | EDRN ---
Pt given morphine IV for pain and developed itching and rash. Pt says he usually gets dilaudid and forgot he has itching/rash with morphine. Morphine was not listed as an allergy in pt chart and pt did not say he had a reaction to morphine when
this RN told him what he was being given for pain. This RN informed Dr Louie and benadryl given as ordered. This RN added morphine in pt's allergies.
[2024-09-18 16:34] VITALS: BP 124/85
[2024-09-18] MEDS: SOLU-CORTEF 200 MG IV (16:34)
[2024-09-18 16:41] LABS: ALT (SGPT) 32 U/L (0-50); AST (SGOT) 22 U/L (17-59); Albumin 4.3 g/dl (3.5-5.0); Alkaline Phosphatase 88 U/L (38-126); Blood Urea Nitrogen 11 mg/dl (9-20); Calcium 9.3 mg/dl (8.4-10.2); Carbon Dioxide 22 mmol/L (22-30); Chloride 102 mmol/L (98-107); Estimated Creatinine Clearance > 125 ml/min; Glucose 276 mg/dl (70-99); Lipase 124 U/L (23-300); Potassium 3.9 mmol/L (3.5-5.1); Sodium 137 mmol/L (135-145); Total Bilirubin 0.1 mg/dl (0.2-1.3); Total Protein 7.1 g/dl (6.3-8.2); eGFR > 60.00
[2024-09-18] MEDS: OMNIPAQUE 50 ML PO (16:43)
[2024-09-18 17:00] VITALS: BP 127/83
[2024-09-18] MEDS: DILAUDID 0.5 MG IV ×2 (17:32→19:02)
[2024-09-18 18:00] VITALS: BP 144/94
[2024-09-18 19:48] VITALS: BP 135/86
[2024-09-18] MEDS: BENADRYL 12.5 MG IV (19:54)
== END 2024-09-18 20:46 | disposition home or self-care (01) ==
LOC: EMR 14:22
PROVIDERS: EMERGENCY PHYSICIAN Emergency Medicine
DX: R10.84 Generalized abdominal pain (principal); R11.10 Vomiting, unspecified; F17.200 Nicotine dependence, unspecified, uncomplicated; Z90.49 Acquired absence of other specified parts of digestive tract; Z87.19 Personal history of other diseases of the digestive system
CPT/HCPCS: 96374; 96375; 96376; 96361; 99284; 74177; 80053; 83605; 83690; 85025; 87040; Q9967

== ENCOUNTER 2024-12-03 08:51 | Emergency (ER) | payer OTHER, SELFPAY ==
[2024-12-03 08:57] VITALS: BP 137/105
[2024-12-03 09:26] VITALS: BMI 27.4
[2024-12-03] MEDS: ZOFRAN 4 MG IV (09:31)
[2024-12-03] MEDS: DILAUDID 1 MG IV ×2 (09:31→11:03)
[2024-12-03] MEDS: NSS 1000 IV (09:35)
[2024-12-03] MEDS: BENADRYL 50 MG IV (09:36)
[2024-12-03] MEDS: OMNIPAQUE 50 ML PO (09:37)
[2024-12-03 09:40] LABS: % Basophils 0.4 % (0-2); % Eosinophils 4.2 % (0-6); % Immature Granulocytes 0.4 % (0-0.5); % Lymphocytes 35.2 % (20.5-51.1); % Monocytes 8.2 % (1.7-9.3); % Neutrophils 51.6 % (42.2-75.2); Absolute Eosinophils 0.2 10^3/uL (0-0.7); Absolute Lymphocytes 1.8 10^3/uL (1.2-3.4); Absolute Monocytes 0.4 10^3/uL (0.1-0.6); Absolute Neutrophils 2.6 10^3/uL (1.4-6.5); Hematocrit 41.6 % (39.0-52.0); Mean Corp Hgb Conc. 33.7 g/dL (33.0-37.0); Mean Corpuscular Hgb 27.3 pg (27.0-31.0); Mean Corpuscular Volume 81.1 fL (80.0-94.0); Nucleated Red Blood Cells % 0 % (-); Platelet Count 291 10^3/uL (130-400); Red Blood Cell Count 5.13 10^6/uL (4.70-6.10); Red Cell Dist. Width 14.7 % (11.5-14.5)
[2024-12-03 09:54] LABS: Lactic Acid 2.8 mmol/L (0.7-2.0)
[2024-12-03 09:55] LABS: ALT (SGPT) 41 U/L (0-50); AST (SGOT) 32 U/L (17-59); Albumin 4.1 g/dl (3.5-5.0); Alkaline Phosphatase 102 U/L (38-126); Blood Urea Nitrogen 9 mg/dl (9-20); Calcium 9.5 mg/dl (8.4-10.2); Carbon Dioxide 24 mmol/L (22-30); Chloride 102 mmol/L (98-107); Estimated Creatinine Clearance > 125 ml/min; Glucose 316 mg/dl (70-99); Lipase 226 U/L (23-300); Potassium 3.8 mmol/L (3.5-5.1); Sodium 135 mmol/L (135-145); Total Bilirubin 0.3 mg/dl (0.2-1.3); Total Protein 7.1 g/dl (6.3-8.2); eGFR > 60.00
[2024-12-03 10:00] VITALS: BP 143/96
[2024-12-03] MEDS: SOLU-CORTEF 200 MG IV (10:40)
--- NOTE | 2024-12-03 10:59 | ED.GENMED ---
History of Present Illness
General
Chief Complaint: Abdominal Pain
Source: patient
Exam Limitations: none
Time Seen by Provider: 12/03/24 09:04
Nursing documentation reviewed up to this point in time: agreed with
History of Present Illness
History of Present Illness:
34-year-old male with past medical history of multiple bowel obstructions multiple surgeries to the abdomen in the past presenting to the emergency department today with concerns abdominal pain and a popping sensation to his bowel. Currently is
following with [facility] where he is scheduled to have a future surgery due to a failing anastomosis. That scheduled in the next few weeks. He has been vomiting all day denies any specific fevers also has had trouble having bowel movements over the
past few days as well. Denies chest pain shortness of breath or fevers.
Past History
Past History
ED Past Medical History: Other (small bowel obstruction, perforated bowel, MRSA bacteremia, infectious endocarditis, multiple abdominal surgeries, intra-abdominal fistula)
ED Past Surgical History: Appendectomy, Cholecystectomy and Other (abdominal abscess drained, history of Meckel's Diverticulum Surgery, partial bowel resection)
Social History
Tobacco: Smoker
Alcohol: None
Drug: None
Personal: Single
Living: alone
Employment: Employed
Family History
Family History: Negative Diabetes, Hypertension or CAD
Review of Systems
Review of Systems
Allergies reviewed?: Yes
All Other Systems: ROS reviewed and negative except as documented in HPI and ROS
Phy Exam
Physical Exam
Physical Exam:
GENERAL: Alert , in no apparent distress
EYE: pupils equal and reactive
NECK: Supple, no significant adenopathy.
ENT: o/p clr, mmm.
CARDIAC: Regular rate and rhythm .
LUNGS: Clear breath sounds bilaterally, no acute respiratory distress, no wheezes/rales/rhonchi
ABDOMEN: Large midline scar soft, without focal tenderness, no r/g, no cvat
NEUROLOGICAL: Alert and oriented, no focal neuro deficits
SKIN: Warm and dry, skin intact.
MUSCULOSKELETAL: No edema, well perfused.
PSYCH: Normal and appropriate interaction.
Course
Orders/Labs/Results
Orders:
Orders
12/03/24 09:08
0.9% Sodium Chloride 1000 ml [Nss] 1,000 ml IV BOLUS
Iohexol [Omnipaque] See Protocol PO NOW STA
12/03/24 09:09
CT Abd/pel W Iv And Oral Contr Urgent
Comment:
Reason For Exam: multiple abd surgeries, vomtiing, no BM 7days
Diphenhydramine [Benadryl] 50 mg IV NOW STA
Hydrocortisone Sod Succinate [Solu-Cortef] 200 mg IV NOW STA
12/03/24 09:24
HYDROmorphone [Dilaudid] 1 mg IV NOW STA
Ondansetron Injectable [Zofran] 4 mg IV NOW STA
12/03/24 09:32
Complete Blood Count/With Diff Urgent
Comprehensive Metabolic Panel Urgent
Lactic Acid Urgent
Lipase Urgent
12/03/24 10:59
HYDROmorphone [Dilaudid] 1 mg IV NOW STA
12/03/24 12:05
Diphenhydramine [Benadryl] 50 mg .ROUTE .STK-MED ONE
12/03/24 12:06
Diphenhydramine [Benadryl] 25 mg IV NOW STA
12/03/24 12:14
Urinalysis Reflex To Culture Urgent
Date Specimen was Collected: 12/03/24
Time Specimen was Collected: 11:57
12/03/24 13:32
Lactic Acid Urgent
12/03/24 13:45
Bedside Glucose- Treatment ONCE
Abnormal Lab Results
12/03/24 12/03/24
09:32 12:14
RDW 14.7 H %
(11.5-14.5)
Creatinine 0.6 L mg/dL
(0.7-1.3)
Glucose 316 H mg/dl
(70-99)
Lactic Acid 2.8 H mmol/L
(0.7-2.0)
Urine Glucose 4+ A
(Negative)
12/03/24 09:32
12/03/24 09:32
Vital Signs
Initial and Last Documented VS:
Initial Vital Signs
Temp Pulse Resp BP Pulse Ox
98.3 F 127 16 137/105 98
12/03/24 08:57 12/03/24 08:57 12/03/24 08:57 12/03/24 08:57 12/03/24 08:57
Last Documented Vital Signs
Temp Pulse Resp BP Pulse Ox
98.3 F 94 16 140/101 99
12/03/24 08:57 12/03/24 12:45 12/03/24 12:45 12/03/24 12:15 12/03/24 12:15
MDM/Problems Addressed
MDM/Problems Addressed:
34-year-old male presenting to the ED with concerns of abdominal pain vomiting since yesterday but worsened today after feeling a popping sensation. On arrival tachycardic but improving after receiving pain medications as well as Zofran and fluids.
Patient with significant improvement in symptoms after medication. Heart rate now normal patient in no distress with repeated lactic acid after liter fluid improved to normal. Patient does appear stable for outpatient follow-up return precautions
given.
*Critical Care Note
Total Time (30-74mins, 75-104mins- exclusive of procedures): Not Applicable
ED Attending Note
-
Portions of this chart may have been created with voice recognition software.� Occasional wrong word or��sound alike� substitutions may have occurred due to the inherent limitations of voice recognition software.
Discharge Plan
Departure
Patient Disposition: Home (Routine Discharge)
Date of Disposition: 12/03/24
Time of Disposition: 14:11
Patient with high blood pressure during this ER visit?: No
Condition: Good
Covid-19: Not Applicable
Discharge Problem:
Abdominal pain
Instructions: Abdominal Pain
Prescriptions:
New
ondansetron 4 mg tablet,disintegrating
4 mg PO Q6H PRN (Reason: nausea and vomiting) Qty: 12 0RF
No Action
ondansetron 4 mg tablet,disintegrating
4 mg PO Q8H 5 Days Qty: 15 0RF
Referrals:
Aldo Cheng MD [Family Provider] -
Activity Restrictions/Additional Instructions:
You came to the emergency department today with concerns of abdominal discomfort. Here your reassuring assessment. Please follow closely with your surgeon. Return for any worsening, new or concerning symptoms.
Interventions
Interventions:
*Risk Screen - Suicide Last Done: 12/03/24 08:57
*Neglect/Abuse Screening Last Done: 12/03/24 08:57
ED- Fall Risk Assessment Last Done: 12/03/24 09:42
*ED COVID-19 Vaccine History Last Done: 12/03/24 09:45
FW-Zhjask-Axczlmorvz Assessment Last Done: 12/03/24 09:42
Discharge Date and Time
Print Language: MONEGASQUE
[2024-12-03 11:00] VITALS: BP 145/95
[2024-12-03] MEDS: BENADRYL 25 MG IV (12:06)
[2024-12-03 12:15] VITALS: BP 140/101
[2024-12-03 12:44] LABS: Urine Albumin Negative (Neg - Trace); Urine Bilirubin Negative (Negative); Urine Character Clear (Clear); Urine Color Yellow; Urine Glucose 4+ (Negative); Urine Ketone Negative (Negative); Urine Leukocyte Negative (Negative); Urine Nitrite Negative (Negative); Urine Occult Blood Negative (Negative); Urine Specific Gravity 1.015 (<1.030); Urine Urobilinogen Negative (Neg - 1+)
[2024-12-03 14:03] LABS: Lactic Acid 1.4 mmol/L (0.7-2.0)
[2024-12-03 14:15] LABS: Glucose - Point of Care 199 mg/dl (70-99)
== END 2024-12-03 14:21 | disposition home or self-care (01) ==
LOC: EMR 08:51
PROVIDERS: Physician Assistant; EMERGENCY PHYSICIAN Emergency Medicine; FAMILY PHYSICIAN Internal Medicine
DX: R10.9 Unspecified abdominal pain (principal); F17.200 Nicotine dependence, unspecified, uncomplicated; Z90.49 Acquired absence of other specified parts of digestive tract
CPT/HCPCS: 99284; 96374; 96375; 96376; 96361; 74177; 80053; 81003; 82962; 83605; 83690; 85025; Q9967

== ENCOUNTER 2025-04-06 14:04 | Emergency (ER) | payer OTHER, SELFPAY ==
[2025-04-06 14:12] VITALS: BP 151/115
[2025-04-06] MEDS: DILAUDID 1 MG IV ×2 (15:16→16:28)
[2025-04-06] MEDS: ZOFRAN 4 MG IV ×2 (15:16→16:29)
--- NOTE | 2025-04-06 15:29 | ED.GENMED ---
History of Present Illness
<Mirian Adams PA-C - Last Filed: 04/07/25 23:07>
General
Chief Complaint: Bowel Problem
Source: patient
Exam Limitations: none
Time Seen by Provider: 04/06/25 14:34
Nursing documentation reviewed up to this point in time: agreed with
History of Present Illness
History of Present Illness:
see MDM
Past History
<PAUL Reece Last Filed: 04/07/25 23:07>
Past History
ED Past Medical History: Other (small bowel obstruction, perforated bowel, MRSA bacteremia, infectious endocarditis, multiple abdominal surgeries, intra-abdominal fistula)
ED Past Surgical History: Appendectomy, Cholecystectomy and Other (abdominal abscess drained, history of Meckel's Diverticulum Surgery, partial bowel resection)
Social History
Tobacco: Smoker
Alcohol: None
Drug: None
Personal: Single
Living: alone
Employment: Employed
Family History
Family History: Negative Diabetes, Hypertension or CAD
Review of Systems
<PAUL Reece Last Filed: 04/07/25 23:07>
Review of Systems
Allergies reviewed?: Yes
All Other Systems: Not applicable
Phy Exam
<PAUL Reece Last Filed: 04/07/25 23:07>
Physical Exam
Physical Exam:
GENERAL: Alert , in no apparent distress
EYE: pupils equal and reactive
NECK: Supple
ENT: o/p clr, mmm.
CARDIAC: Tachycardic.
LUNGS: Clear breath sounds bilaterally, no acute respiratory distress, no wheezes/rales/rhonchi
ABDOMEN: Distended, firm, diffusely mildly tender, many surgical scars well-healed
NEUROLOGICAL: Alert and oriented, no focal neuro deficits
SKIN: Warm and dry, skin intact.
MUSCULOSKELETAL: No edema, well perfused. neg christen's sign
PSYCH: Normal and appropriate interaction.
Course
<Mirian Adams PA-C - Last Filed: 04/07/25 23:07>
Orders/Labs/Results
Orders:
Orders
04/06/25 15:09
0.9% Sodium Chloride 1000 ml [Nss] 1,000 ml IV BOLUS
Diphenhydramine [Benadryl] 50 mg IV NOW STA
HYDROmorphone [Dilaudid] 1 mg IV NOW STA
Hydrocortisone Sod Succinate [Solu-Cortef] 200 mg IV NOW STA
Ondansetron Injectable [Zofran] 4 mg IV NOW STA
04/06/25 15:11
CT Abd/Pel (IV only)-DH only Urgent
Comment:
Reason For Exam: abd distension, vomiting; h/o mult SBO
04/06/25 15:43
Basic Metabolic Panel Urgent
Complete Blood Count/With Diff Urgent
Lactic Acid Urgent
Lipase Urgent
04/06/25 16:25
HYDROmorphone [Dilaudid] 1 mg IV NOW STA
Ondansetron Injectable [Zofran] 4 mg IV NOW STA
04/06/25 16:30
0.9% Sodium Chloride 1000 ml [Nss] 1,000 ml IV BOLUS
04/06/25 17:35
Famotidine [Pepcid] 20 mg IV NOW STA
Abnormal Lab Results
04/06/25
15:43
Creatinine 0.6 L mg/dL
(0.7-1.3)
Glucose 301 H mg/dl
(70-99)
04/06/25 15:43
04/06/25 15:43
Vital Signs
Initial and Last Documented VS:
Initial Vital Signs
Temp Pulse Resp BP Pulse Ox
36.9 C 112 16 151/115 97
04/06/25 14:12 04/06/25 14:12 04/06/25 14:12 04/06/25 14:12 04/06/25 14:12
Last Documented Vital Signs
Temp Pulse Resp BP Pulse Ox
36.9 C 85 17 136/80 98
04/06/25 17:48 04/06/25 17:48 04/06/25 17:48 04/06/25 17:48 04/06/25 17:48
<Mela Shin NP - Last Filed: 04/06/25 18:02>
Orders/Labs/Results
Orders:
Orders
04/06/25 15:09
0.9% Sodium Chloride 1000 ml [Nss] 1,000 ml IV BOLUS
Diphenhydramine [Benadryl] 50 mg IV NOW STA
HYDROmorphone [Dilaudid] 1 mg IV NOW STA
Hydrocortisone Sod Succinate [Solu-Cortef] 200 mg IV NOW STA
Ondansetron Injectable [Zofran] 4 mg IV NOW STA
04/06/25 15:11
CT Abd/Pel (IV only)-DH only Urgent
Comment:
Reason For Exam: abd distension, vomiting; h/o mult SBO
04/06/25 15:43
Basic Metabolic Panel Urgent
Complete Blood Count/With Diff Urgent
Lactic Acid Urgent
Lipase Urgent
04/06/25 16:25
HYDROmorphone [Dilaudid] 1 mg IV NOW STA
Ondansetron Injectable [Zofran] 4 mg IV NOW STA
04/06/25 16:30
0.9% Sodium Chloride 1000 ml [Nss] 1,000 ml IV BOLUS
04/06/25 17:35
Famotidine [Pepcid] 20 mg IV NOW STA
Abnormal Lab Results
04/06/25
15:43
Creatinine 0.6 L mg/dL
(0.7-1.3)
Glucose 301 H mg/dl
(70-99)
04/06/25 15:43
04/06/25 15:43
Vital Signs
Initial and Last Documented VS:
Initial Vital Signs
Temp Pulse Resp BP Pulse Ox
36.9 C 112 16 151/115 97
04/06/25 14:12 04/06/25 14:12 04/06/25 14:12 04/06/25 14:12 04/06/25 14:12
Last Documented Vital Signs
Temp Pulse Resp BP Pulse Ox
36.9 C 85 17 136/80 98
04/06/25 17:48 04/06/25 17:48 04/06/25 17:48 04/06/25 17:48 04/06/25 17:48
<Mirian Adams PA-C - Last Filed: 04/07/25 23:07>
MDM/Problems Addressed
Differential Diagnosis Includes:
SBO, PERFORATION, CHRONIC PAIN, ILEUS, GASTROENTERITIS
MDM/Problems Addressed:
Note:
CHIEF COMPLAINT(S)
Severe abdominal distention, inability to tolerate oral intake, and persistent vomiting.
HISTORY OF PRESENT ILLNESS
The patient is a 35-year-old male with a history of multiple abdominal surgeries and bowel obstruction, presenting with significant abdominal discomfort. The patient reports a history of recent admission at [facility], 03/16, for a bowel
obstruction. During that visit, he was admitted due to a partial obstruction and received an NG tube but left after a brief stay due to personal obligations, left after 24 hours. The patient describes his abdominal distention as extreme and notes an
inability to retain any oral intake, leading to frequent vomiting.
The patient attributes his current exacerbation to trying a home remedy with magnesium citrate yesterday, which worsened his symptoms, inducing 'really bad pain' and excessive vomiting. He indicates he hasnt been able to maintain any sustenance or
fluids since then, with an attempt to drink coffee this morning resulting in immediate vomiting.
The patient has a known narrowing in his intestine from a prior bowel perforation in January of the previous year, for which he underwent TPN therapy. He was scheduled for corrective surgery at [facility] before its sudden closure and has been unable to
secure alternative arrangements. He reports previous surgeries, including gallbladder and appendix removal, multiple bowel perforation repairs, and a history of fistulae requiring extensive surgical intervention.
The patient acknowledges sensation of abdominal fullness or firmness, more pronounced than with previous obstructions, though currently denies fever. There have been ongoing discussions about potentially needing a total colectomy due to his complex
surgical history, which includes a diagnosis of 'frozen abdomen' with significant scar tissue.
ADDITIONAL HISTORY OBTAINED FROM SOURCES OTHER THAN THE PATIENT
Per prior hospital records, a partial obstruction with narrowing was noted.
CHRONIC MEDICAL CONDITIONS SIGNIFICANTLY AFFECTING CARE
- History of recurrent bowel obstructions.
- Post-surgical abdominal adhesions.
SOCIAL DETERMINANTS AFFECTING HEALTH
The patients employment in construction necessitates travel, leading to variability in accessing consistent healthcare providers, complicating continuity of care.
PAST SURGICAL HISTORY
- Gallbladder removal.
- Appendix removal.
- Two bowel perforations with subsequent repairs.
- Construction of and reversal of an ileostomy.
- Two lysis of adhesions surgeries.
- Mesh placement and removal due to infection.
- Fistula take-down procedures.
ALLERGIES
The patient reports an allergy to contrast agents, typically pre-medicated with corticosteroid and antihistamine therapy (hydrocortisone and Benadryl).
MEDICATIONS
The patient has been treated with corticosteroid (hydrocortisone) and antihistamine (Benadryl) for allergic reactions to contrast.
PHYSICAL EXAM
- Abdominal Examination: The patients abdomen is notably distended and firm to palpation, consistent with bowel obstruction.
tachycardic
mildly uncomfortable
Nursing notes reviewed and vital signs reviewed.
PLAN
- Administer pain relief and antiemetic medications.
- Initiate IV fluids for hydration.
CTAP to eval for bowel obstruction vs ileus;
pt has habit of refusing admission or leaving AMA
has had multiple surgeries and surgical evaluatoins and [facility]
DIFFERENTIAL DIAGNOSIS
The Differential Diagnosis includes, in no particular order and is not limited to:
1. Complete bowel obstruction.
2. Bowel perforation.
3. Paralytic ileus.
4. Intestinal ischemia.
5. Adhesive small bowel obstruction.
6. Diverticulitis with obstruction.
7. Intestinal malignancy.
8. Gastroparesis secondary to previous surgeries.
9. Hernia.
10. Volvulus.
1645 - signed out pending CT scan.
<Mela Shin NP - Last Filed: 04/06/25 18:02>
*Critical Care Note
Total Time (30-74mins, 75-104mins- exclusive of procedures): Not Applicable
<Mela Shin NP - Last Filed: 04/06/25 18:02>
Update Note
Update Note:
Developed generalized itching after IV contrast. VSS, no respiratory distress. Given Pepcid 20mg IV and itching resolved. No skin rash. CT report reviewed, no acute findings. No obstruction. He states he is feeling improved. Will discharged
home. He will follow up with surgeon as scheduled next week.
ED Attending Note
<Mirian Adams PA-C - Last Filed: 04/07/25 23:07>
-
Portions of this chart may have been created with voice recognition software.� Occasional wrong word or��sound alike� substitutions may have occurred due to the inherent limitations of voice recognition software.
Discharge Plan
Departure
Patient Disposition: Home (Routine Discharge)
Date of Disposition: 04/06/25
Time of Disposition: 18:00
Patient with high blood pressure during this ER visit?: No
Condition: Good
Covid-19: Not Applicable
Discharge Problem:
Abdominal pain
Instructions: Abdominal Pain
Prescriptions:
No Action
ondansetron 4 mg tablet,disintegrating
4 mg PO Q8H 5 Days Qty: 15 0RF
ondansetron 4 mg tablet,disintegrating
4 mg PO Q6H PRN (Reason: nausea and vomiting) Qty: 12 0RF
Referrals:
NONE,* [Active, Internal Medicine]
Activity Restrictions/Additional Instructions:
Return to the emergency department immediately for any changes in/worsening of your symptoms.
Interventions
Interventions:
*Risk Screen - Suicide Last Done: 04/06/25 14:12
*General Assessment Last Done: 04/06/25 14:12
*Neglect/Abuse Screening Last Done: 04/06/25 14:12
*ED- Fall Risk Assessment Last Done: 04/06/25 15:05
*ED COVID-19 Vaccine History Last Done: 04/06/25 15:08
*Nursing Disposition Last Done: 04/06/25 18:25
DL-Kbczpp-Hojjfmfkvg Assessment Last Done: 04/06/25 15:07
Discharge Date and Time
Discharge Date/Time: 04/06/25 18:27
Print Language: PALESTINIAN
[2025-04-06 16:09] LABS: % Basophils 0.3 % (0-2); % Eosinophils 3.5 % (0-6); % Immature Granulocytes 0.2 % (0-0.5); % Lymphocytes 31.5 % (20.5-51.1); % Monocytes 6.9 % (1.7-9.3); % Neutrophils 57.6 % (42.2-75.2); Absolute Eosinophils 0.2 10^3/uL (0-0.7); Absolute Lymphocytes 1.9 10^3/uL (1.2-3.4); Absolute Monocytes 0.4 10^3/uL (0.1-0.6); Absolute Neutrophils 3.5 10^3/uL (1.4-6.5); Hematocrit 40.1 % (39.0-52.0); Hemoglobin 14.2 g/dL (13.0-18.0); Mean Corp Hgb Conc. 35.4 g/dL (33.0-37.0); Mean Corpuscular Hgb 29.2 pg (27.0-31.0); Mean Corpuscular Volume 82.5 fL (80.0-94.0); Mean Platelet Volume 9.3 fL (7.4-10.4); Nucleated Red Blood Cells % 0 % (-); Platelet Count 284 10^3/uL (130-400); Red Blood Cell Count 4.86 10^6/uL (4.70-6.10); Red Cell Dist. Width 14.4 % (11.5-14.5); White Blood Cell Count 6.1 10^3/uL (4.8-10.8)
[2025-04-06] MEDS: BENADRYL 50 MG IV (16:14)
[2025-04-06] MEDS: SOLU-CORTEF 200 MG IV (16:14)
[2025-04-06] MEDS: NSS 1000 IV (16:14)
[2025-04-06 16:21] LABS: Lactic Acid 1.3 mmol/L (0.7-2.0)
[2025-04-06 16:26] LABS: Blood Urea Nitrogen 11 mg/dl (9-20); Calcium 9.5 mg/dl (8.4-10.2); Carbon Dioxide 24 mmol/L (22-30); Chloride 106 mmol/L (98-107); Glucose 301 mg/dl (70-99); Lipase 131 U/L (23-300); Sodium 137 mmol/L (135-145); eGFR > 60.00
[2025-04-06 16:34] VITALS: BP 138/97
[2025-04-06] MEDS: PEPCID 20 MG IV (17:41)
[2025-04-06 17:48] VITALS: BP 136/80
[2025-04-06 17:49] VITALS: BMI 27.1
--- NOTE | 2025-04-06 18:22 | PTCARENOTE ---
Pt left the department without dc paperwork stating 'Do i need it? i dont think i need it, I just have to give something to someone and ill be right back in for it.' pt did not return to room after 15 mins. DC paperwork given to mechanical ordnance assembler just in
case pt returns. Provider Arminda made aware. pt was provided a disc with imaging that he did take.
== END 2025-04-06 18:27 | disposition home or self-care (01) ==
LOC: EMR 14:04
PROVIDERS: Physician Assistant; EMERGENCY PHYSICIAN Student in an Organized Health Care Education/Training Program; FAMILY PHYSICIAN Internal Medicine
DX: R10.9 Unspecified abdominal pain (principal); F17.200 Nicotine dependence, unspecified, uncomplicated; Z88.8 Allergy status to other drugs, medicaments and biological substances; Z90.49 Acquired absence of other specified parts of digestive tract; I33.0 Acute and subacute infective endocarditis
CPT/HCPCS: 99284; 96374; 96375; 96376; 96361; 74177; 80048; 83605; 83690; 85025; Q9967

== ENCOUNTER 2025-06-16 08:57 | Emergency (ER) | payer OTHER, SELFPAY ==
[2025-06-16 08:59] VITALS: BP 154/92
--- NOTE | 2025-06-16 09:45 | EDRN ---
Dr. Monte in to see pt.
[2025-06-16 09:51] VITALS: BMI 27.1
[2025-06-16 09:55] VITALS: BP 115/83
[2025-06-16 10:00] VITALS: BP 128/98
[2025-06-16] MEDS: DILAUDID 1 MG IV ×2 (10:09→11:36)
[2025-06-16] MEDS: BENADRYL 12.5 MG IV (10:10)
--- NOTE | 2025-06-16 10:17 | ED.GENMED ---
History of Present Illness
General
Chief Complaint: Abdominal Symptoms
Source: patient
Exam Limitations: none
Time Seen by Provider: 06/16/25 09:28
Nursing documentation reviewed up to this point in time: agreed with
History of Present Illness
History of Present Illness:
Patient with history of multiple abdominal surgeries and subsequent development of small bowel obstruction, presents to ED secondary to recurrent abdominal pain associated with nausea and vomiting over the past 3 days. Denies fever or chills.
Denies trauma. Patient also states that he has not been able to have any bowel movements over the past 1 week despite taking medication. Denies recent change in medications or diet.
Past History
Past History
ED Past Medical History: Other (small bowel obstruction, perforated bowel, MRSA bacteremia, infectious endocarditis, multiple abdominal surgeries, intra-abdominal fistula)
ED Past Surgical History: Appendectomy, Cholecystectomy and Other (abdominal abscess drained, history of Meckel's Diverticulum Surgery, partial bowel resection)
Social History
Tobacco: Smoker
Alcohol: None
Drug: None
Personal: Single
Living: alone
Employment: Employed
Family History
Family History: Negative Diabetes, Hypertension or CAD
Review of Systems
Review of Systems
Allergies reviewed?: Yes
All Other Systems: ROS reviewed and negative except as documented in HPI and ROS
Constitutional: Reports no symptoms; Denies fever
Respiratory: Reports no symptoms
Cardiac: Reports no symptoms
ABD/GI: Reports abdominal pain, nausea, vomiting and constipated
Musculoskeletal: Reports no symptoms
Skin: Reports no symptoms
Neurological: Reports no symptoms
Phy Exam
Physical Exam
Physical Exam:
Physical Exam
General: mild painful distress, not acutely ill. afebrile
Head: nc/at. eomi
Neck: supple. no meningeal signs.
Heart: s1/s2 regular rate and rhythm
Lungs: no acute respiratory distress. clear bilaterally
Abdomen: diminished bowel sounds. no distention. multiple well-healed abdominal surgical scar noted, with diffuse moderate tenderness to palpation.
Neuro: alert and oriented x 3. no focal neurological deficits
Skin: no rash
Psychiatric: well kept. interactive and cooperative
Extremities: no edema. no calf tenderness
Course
Orders/Labs/Results
Orders:
Orders
06/16/25 09:29
CR Obstruct Series W/pa Chest Urgent
Comment:
Reason For Exam: abd pain w hx SBO
06/16/25 09:44
HYDROmorphone [Dilaudid] 1 mg IV NOW STA
06/16/25 09:45
0.9% Sodium Chloride 1000 ml [Nss] 1,000 ml IV BOLUS
Diphenhydramine [Benadryl] 12.5 mg IV NOW STA
Metoclopramide [Reglan] 10 mg IV NOW STA
06/16/25 10:20
Ondansetron Orally Disint [Zofran Odt (Orally Disintegrating)] 4 mg PO NOW STA
06/16/25 11:20
HYDROmorphone [Dilaudid] 1 mg IV NOW STA
Ondansetron Injectable [Zofran] 4 mg IV NOW STA
06/16/25 11:21
Complete Blood Count/With Diff Urgent
Comprehensive Metabolic Panel Urgent
Lipase Urgent
Magnesium Urgent
06/16/25 12:31
HYDROmorphone [Dilaudid] 0.5 mg IV NOW STA
Abnormal Lab Results
06/16/25
11:21
Glucose 189 H mg/dl
(70-99)
Lipase 456 H U/L
(23-300)
06/16/25 11:21
06/16/25 11:21
Vital Signs
Initial and Last Documented VS:
Initial Vital Signs
Temp Pulse Resp BP Pulse Ox
98.6 F 132 20 154/92 97
06/16/25 08:59 06/16/25 08:59 06/16/25 08:59 06/16/25 08:59 06/16/25 08:59
Last Documented Vital Signs
Temp Pulse Resp BP Pulse Ox
98.6 F 78 16 137/97 100
06/16/25 08:59 06/16/25 13:04 06/16/25 13:04 06/16/25 13:04 06/16/25 13:04
MDM/Problems Addressed
MDM/Problems Addressed:
Patient with an unremarkable workup in ED, including blood work and x-ray, although lipase mildly elevated, which is very nonspecific Patient also reports significant improvement symptoms after treatment. It is possible that patient may be
experiencing recurrent partial versus early small bowel obstruction versus ileus. However, as patient feels comfortable going home at this time, patient will be discharged with recommendation to follow-up with his surgeon at [facility], or consider return to ED with worsening symptoms. Pt able tolerate crackers/water, prior to discharge
*Pulse Oximetry
SaO2: 97
Oxygen Mode of Delivery: Room air
Patient hypoxic: no
*Critical Care Note
Total Time (30-74mins, 75-104mins- exclusive of procedures): Not Applicable
ED Attending Note
-
Portions of this chart may have been created with voice recognition software.� Occasional wrong word or��sound alike� substitutions may have occurred due to the inherent limitations of voice recognition software.
Discharge Plan
Departure
Patient Disposition: Home (Routine Discharge)
Date of Disposition: 06/16/25
Time of Disposition: 12:31
Patient with high blood pressure during this ER visit?: Yes
Condition: Fair
Discharge Problem:
Abdominal pain
Instructions: Abdominal Pain
Prescriptions:
New
ondansetron 4 mg Tablet,Disintegrating
4 mg PO TIDPRN PRN (Reason: nausea/vomiting) Qty: 12 0RF
No Action
ondansetron 4 mg tablet,disintegrating
4 mg PO Q8H 5 Days Qty: 15 0RF
ondansetron 4 mg tablet,disintegrating
4 mg PO Q6H PRN (Reason: nausea and vomiting) Qty: 12 0RF
Referrals:
Aldo Cheng MD [Family Provider, Internal Medicine]
Stand Alone Forms: Return to Work
Activity Restrictions/Additional Instructions:
As discussed, please follow-up with your primary care physician and/or general surgeon for further evaluation and treatment. Please consider return to ED with worsening symptoms, i.e. fever/worsening pain/vomiting. Your prescription has been sent
electronically to [facility] in [place].
Interventions
Interventions:
*Risk Screen - Suicide Last Done: 06/16/25 09:51
*General Assessment Last Done: 06/16/25 09:51
*Neglect/Abuse Screening Last Done: 06/16/25 09:51
*ED- Fall Risk Assessment Last Done: 06/16/25 09:51
*ED COVID-19 Vaccine History Last Done: 06/16/25 09:51
*Nursing Disposition Last Done: 06/16/25 13:10
YO-Qtcyoo-Wlmohiufur Assessment Last Done: 06/16/25 11:53
Discharge Date and Time
Discharge Date/Time: 06/16/25 13:10
Print Language: KYRGYZ
[2025-06-16] MEDS: ZOFRAN ODT (ORALLY DISINTEGRATING) 4 MG PO (10:23)
--- NOTE | 2025-06-16 10:24 | EDRN ---
Pt declined reglan due to bad reaction in the past. This RN TT'd Dr. Monte for jorge severino and got an order. IV was started in R AC w/ #20 P but post given 2 meds infiltrated (unable to fully advance catheter). VAT RN TT'd and in room at this time.
--- NOTE | 2025-06-16 10:33 | EDRN ---
Both tubes that were declared hemolyzed by lab at this time. JULITO RN attempting access for IVF at this time.
[2025-06-16] MEDS: ZOFRAN 4 MG IV (11:35)
[2025-06-16 11:40] VITALS: BP 133/99
[2025-06-16] MEDS: NSS 1000 IV (11:44)
[2025-06-16 11:55] LABS: Hematocrit 40.5 % (39.0-52.0); Hemoglobin 14.1 g/dL (13.0-18.0); Mean Corp Hgb Conc. 34.8 g/dL (33.0-37.0); Mean Corpuscular Volume 84.2 fL (80.0-94.0); Nucleated Red Blood Cells % 0 % (-); Platelet Count 248 10^3/uL (130-400); Red Cell Dist. Width 13.4 % (11.5-14.5)
--- NOTE | 2025-06-16 12:05 | EDRN ---
Dr. Monte in to see pt.
--- NOTE | 2025-06-16 12:09 | EDRN ---
Dr. Monte in room w/ pt.
[2025-06-16 12:18] LABS: ALT (SGPT) 40 U/L (0-50); AST (SGOT) 25 U/L (17-59); Albumin 4.2 g/dl (3.5-5.0); Alkaline Phosphatase 81 U/L (38-126); Blood Urea Nitrogen 11 mg/dl (9-20); Calcium 9.2 mg/dl (8.4-10.2); Carbon Dioxide 24 mmol/L (22-30); Chloride 105 mmol/L (98-107); Estimated Creatinine Clearance > 125 ml/min; Glucose 189 mg/dl (70-99); Lipase 456 U/L (23-300); Magnesium 1.8 mg/dl (1.6-2.3); Potassium 3.8 mmol/L (3.5-5.1); Sodium 138 mmol/L (135-145); Total Protein 6.7 g/dl (6.3-8.2); eGFR > 60.00
[2025-06-16] MEDS: DILAUDID 0.5 MG IV (12:58)
[2025-06-16 13:04] VITALS: BP 137/97
== END 2025-06-16 13:10 | disposition home or self-care (01) ==
LOC: EMR 08:57
PROVIDERS: EMERGENCY PHYSICIAN Emergency Medicine; FAMILY PHYSICIAN Internal Medicine
DX: R11.2 Nausea with vomiting, unspecified (principal); R10.9 Unspecified abdominal pain; Z90.49 Acquired absence of other specified parts of digestive tract; F17.200 Nicotine dependence, unspecified, uncomplicated
CPT/HCPCS: 99284; 96374; 96375 ×2; 96376 ×2; 96361; 74022; 80053; 83690; 83735; 85025

== ENCOUNTER 2025-07-26 15:34 | Emergency (ER) | payer OTHER, SELFPAY ==
[2025-07-26 15:38] VITALS: BP 179/122
--- NOTE | 2025-07-26 16:31 | ED.GENMED ---
History of Present Illness
General
Chief Complaint: Abdominal Symptoms
Source: patient and records ( PAST SURGICAL HISTORY: 1. Meckel's diverticulectomy as a child. 2. Laparoscopic cholecystectomy in the past in 2013. 3. Laparoscopic appendectomy complicated by an abscess. 4. 2013 laparotomy to drain intraabdominal
abscess and 3 months later he underwent surgery for another abscess at which ti)
Time Seen by Provider: 07/26/25 15:53
History of Present Illness
History of Present Illness:
35-year-old male presents with abdominal pain nausea vomiting vomiting some stool like material no bowel movement for 7 days he has had abdominal perforations seen in numerous hospitals most recently Jeanne was seen at [facility],
[facility] told that he was very complicated to see a tertiary care center [facility] apparently has been seen at [facility] scheduled for surgery
Patient is diabetic, had endocarditis previously positive blood cultures
PAST SURGICAL HISTORY: as of 2019
1. Meckel's diverticulectomy as a child.
2. Laparoscopic cholecystectomy in the past in 2013.
3. Laparoscopic appendectomy complicated by an abscess.
4. 2013 laparotomy to drain intraabdominal abscess and 3 months
later he underwent surgery for another abscess at which time he
underwent a laparotomy, and the wound was left open with a VAC.
5. From 2013 through 2017 he has had 3 laparotomies for bowel
obstructions.
6. In October 2018 he underwent emergency surgery for strangulated
small-bowel/for a small-bowel obstruction requiring small-bowel
resection and this was performed in [place].
7. In February 2019 he had an abdominal wound evisceration and
underwent emergency closure.
8. In April 2015 he underwent another laparotomy with excision of
inflammatory mass in [place].
9. In May 2019 he underwent a diverting ileostomy in [facility]
[place].
10.His most recent surgery was the ileostomy closure and placement
of mesh in April of 2020.
Past History
Past History
ED Past Medical History: Other (small bowel obstruction, perforated bowel, MRSA bacteremia, infectious endocarditis, multiple abdominal surgeries, intra-abdominal fistula)
ED Past Surgical History: Appendectomy, Cholecystectomy and Other (abdominal abscess drained, history of Meckel's Diverticulum Surgery, partial bowel resection)
Social History
Tobacco: Smoker
Alcohol: None
Drug: None
Personal: Single
Living: alone
Employment: Employed
Family History
Family History: Negative Diabetes, Hypertension or CAD
Phy Exam
Physical Exam
Physical Exam:
Physical Exam
General: 35 male normal mental status tachycardic hypertensive
Neck: No jaundice
Heart: s1/s2 regular rate and rhythm, no murmur. equal radial pulses.
Lungs: no acute respiratory distress. clear bilaterally
Abdomen: Distended diffusely tender with diminished bowel sounds vertical laparotomy scar
Neuro: alert and oriented. no focal neurological deficits
Skin: no rash
Psychiatric: well kept. interactive and cooperative
Extremities: no edema.
Course
Orders/Labs/Results
Orders:
Orders
07/26/25 16:21
IV Insert/Care/Rem.- Treatment PRN
Urinalysis Reflex To Culture Urgent
0.9% Sodium Chloride 1000 ml [Nss] 1,000 ml IV BOLUS
HYDROmorphone [Dilaudid] 1 mg IV NOW STA
Ondansetron Injectable [Zofran] 4 mg IV NOW STA
Pantoprazole [Protonix IV] 40 mg IV NOW STA
07/26/25 16:22
CR Obstruct Series W/pa Chest Urgent
Comment:
Reason For Exam: vomiting
07/26/25 16:23
Electrocardiogram (*1) Urgent
Reason for Study: Abdominal Pain
Bedside Glucose- Treatment ONCE
EKG- Treatment ONCE
07/26/25 18:00
Complete Blood Count/With Diff Urgent
Comprehensive Metabolic Panel Urgent
Lactic Acid Urgent
Lipase Urgent
07/26/25 19:24
Diphenhydramine [Benadryl] 25 mg IV NOW STA
HYDROmorphone [Dilaudid] 1 mg IV NOW STA
Ondansetron Injectable [Zofran] 4 mg IV NOW STA
Abnormal Lab Results
07/26/25
18:00
RBC 4.69 L 10^6/uL
(4.70-6.10)
Creatinine 0.6 L mg/dL
(0.7-1.3)
Glucose 302 H mg/dl
(70-99)
ALT 56 H U/L
(0-50)
07/26/25 18:00
07/26/25 18:00
Vital Signs
Initial and Last Documented VS:
Initial Vital Signs
Pulse Resp BP Pulse Ox
140 22 179/122 98
07/26/25 15:38 07/26/25 15:38 07/26/25 15:38 07/26/25 15:38
Last Documented Vital Signs
Pulse Resp BP Pulse Ox
140 22 179/122 98
07/26/25 15:38 07/26/25 15:38 07/26/25 15:38 07/26/25 16:33
*Pulse Oximetry
SaO2: 98
Oxygen Mode of Delivery: Room air
Patient hypoxic: no
*Critical Care Note
Total Time (30-74mins, 75-104mins- exclusive of procedures): Not Applicable
Update Note
Update Note:
5:15 PM patient's had greater than 20 CAT scans at [place]
Will start with obstruction series IV fluids antiemetics
7:30 PM update labs are noted obstruction series noted patient improved with fluids heart rates up blood pressures up, suspect some degree of narcotic tolerance withdrawal perhaps partial obstruction
Patient tells me his plan is to follow-up with [facility]
Believe he can safely be discharged
Clear liquids, advance slowly as tolerated
ED Attending Note
-
Portions of this chart may have been created with voice recognition software.� Occasional wrong word or��sound alike� substitutions may have occurred due to the inherent limitations of voice recognition software.
Discharge Plan
Departure
Patient Disposition: Home (Routine Discharge)
Date of Disposition: 07/26/25
Time of Disposition: 19:43
Patient with high blood pressure during this ER visit?: Yes
Discharge Problem:
Abdominal pain
Instructions: Clear Liquid Diet, Campbell Diet, Abdominal Pain, BLOOD PRESSURE
Prescriptions:
No Action
ondansetron 4 mg tablet,disintegrating
4 mg PO Q8H 5 Days Qty: 15 0RF
ondansetron 4 mg tablet,disintegrating
4 mg PO Q6H PRN (Reason: nausea and vomiting) Qty: 12 0RF
ondansetron 4 mg Tablet,Disintegrating
4 mg PO TIDPRN PRN (Reason: nausea/vomiting) Qty: 12 0RF
Referrals:
NONE,* [Family Provider, Internal Medicine]
Activity Restrictions/Additional Instructions:
Follow-up with your outpatient physicians locally and in [place]
Return to the ER if worsening symptoms
Interventions
Interventions:
*Risk Screen - Suicide Last Done: 07/26/25 15:38
*General Assessment Last Done: 07/26/25 15:38
*ED- Fall Risk Assessment Last Done: 07/26/25 17:42
*ED COVID-19 Vaccine History Last Done: 07/26/25 17:42
*ED Influenza Vaccine History Last Done: 07/26/25 17:42
MN-Bkhszv-Tggcfpzzxk Assessment Last Done: 07/26/25 17:43
Discharge Date and Time
Print Language: ALGERIAN
[2025-07-26 17:41] VITALS: BMI 26.4
[2025-07-26] MEDS: NSS 1000 IV (18:04)
[2025-07-26] MEDS: ZOFRAN 4 MG IV ×2 (18:04→19:32)
[2025-07-26] MEDS: PROTONIX IV 40 MG IV (18:04)
[2025-07-26 18:16] LABS: Hematocrit 40.2 % (39.0-52.0); Hemoglobin 13.9 g/dL (13.0-18.0); Mean Corp Hgb Conc. 34.6 g/dL (33.0-37.0); Mean Corpuscular Volume 85.7 fL (80.0-94.0); Nucleated Red Blood Cells % 0 % (-); Platelet Count 278 10^3/uL (130-400); Red Cell Dist. Width 14.0 % (11.5-14.5)
[2025-07-26 18:27] LABS: ALT (SGPT) 56 U/L (0-50); AST (SGOT) 35 U/L (17-59); Albumin 4.2 g/dl (3.5-5.0); Alkaline Phosphatase 91 U/L (38-126); Blood Urea Nitrogen 12 mg/dl (9-20); Calcium 9.7 mg/dl (8.4-10.2); Carbon Dioxide 24 mmol/L (22-30); Chloride 104 mmol/L (98-107); Estimated Creatinine Clearance > 125 ml/min; Glucose 302 mg/dl (70-99); Lipase 131 U/L (23-300); Potassium 3.8 mmol/L (3.5-5.1); Sodium 135 mmol/L (135-145); Total Protein 7.0 g/dl (6.3-8.2); eGFR > 60.00
[2025-07-26] MEDS: BENADRYL 25 MG IV (19:31)
[2025-07-26] MEDS: DILAUDID 1 MG IV (19:31)
== END 2025-07-26 19:59 | disposition home or self-care (01) ==
LOC: EMR 15:34
PROVIDERS: EMERGENCY PHYSICIAN Emergency Medicine
DX: R10.9 Unspecified abdominal pain (principal); R11.2 Nausea with vomiting, unspecified; E11.9 Type 2 diabetes mellitus without complications; F17.200 Nicotine dependence, unspecified, uncomplicated; Z86.14 Personal history of Methicillin resistant Staphylococcus aureus infection; Z90.49 Acquired absence of other specified parts of digestive tract
CPT/HCPCS: 96374; 96375; 99285; 74022; 80053; 83605; 83690; 85025; 93005